=== PATIENT | female | born 1930 | race Caucasian/White ===

== ENCOUNTER 2017-07-09 02:08 | Observation (INO) | payer MEDICARE, BC ==
--- NOTE | 2017-07-09 02:46 | ED ---
General Adult HPI - General Chief complaint: Recheck/Abnormal Lab/Rx Stated complaint: Dizziness Time Seen by Provider: 07/09/17 02:24 Source: patient, family, RN notes reviewed Mode of arrival: ambulatory Limitations: no limitations - History of Present Illness Initial comments: Patient is a pleasant 86-year-old female presenting to the emergency Department as a transfer from [facility]. Patient was seen there diagnosed with vertigo. Dr. Mock did call and stated patient requested transfer. He did want patient to have neurology evaluation. He is aware that MRI is not available at this time and is questionable for availability tomorrow. Patient states she feels much better at this time. Patient states onset of symptoms was this afternoon. Patient felt lightheaded. Patient also did not feel like her eyes were working well together. No confusion or weakness. - Related Data Home Medications Medication Instructions Recorded Confirmed Cholecalciferol [Vitamin D3] 1,000 unit PO DAILY 08/19/16 07/09/17 Thyroid,Pork [[place] Thyroid] 60 mg PO DAILY 08/19/16 07/09/17 Allergies Allergy/AdvReac Type Severity Reaction Status Date / Time cetirizine [From Zyrtec] Allergy Rash/Hives Verified 07/09/17 02:13 erythromycin base Allergy Rash/Hives Verified 07/09/17 02:13 Penicillins Allergy Swelling Verified 07/09/17 02:13 Sulfa (Sulfonamide Allergy Rash/Hives Verified 07/09/17 02:13 Antibiotics) Review of Systems ROS Statement: Those systems with pertinent positive or pertinent negative responses have been documented in the HPI. ROS Other: All systems not noted in ROS Statement are negative. Constitutional: Denies: fever Eyes: Reports: as per HPI ENT: Denies: ear pain Respiratory: Denies: cough Cardiovascular: Denies: chest pain Endocrine: Denies: fatigue Gastrointestinal: Denies: abdominal pain Genitourinary: Denies: dysuria Musculoskeletal: Denies: back pain Skin: Denies: rash Neurological: Reports: vertigo. Denies: headache, weakness, confusion Past Medical History Past Medical History: Cancer, Thyroid Disorder Additional Past Medical History / Comment(s): Lichen Sclerosus et Atrophicus History of Any Multi-Drug Resistant Organisms: None Reported Past Surgical History: Appendectomy Additional Past Surgical History / Comment(s): colon resection, breast biopsy Past Psychological History: No Psychological Hx Reported Smoking Status: Never smoker Past Alcohol Use History: None Reported Past Drug Use History: None Reported General Exam Limitations: no limitations General appearance: alert, in no apparent distress Head exam: Present: atraumatic Eye exam: Present: normal appearance, PERRL, EOMI. Absent: nystagmus ENT exam: Present: normal oropharynx Neck exam: Present: normal inspection Respiratory exam: Present: normal lung sounds bilaterally Cardiovascular Exam: Present: regular rate, normal rhythm GI/Abdominal exam: Present: soft. Absent: tenderness Extremities exam: Present: normal inspection. Absent: pedal edema, calf tenderness Neurological exam: Present: alert, oriented X3, CN II-XII intact. Absent: motor sensory deficit Expanded Patient oriented to: Present: person, place, time Speech: Present: fluid speech Cranial nerves: EOM's Intact: Normal, Facial Sensation: Normal Cerebellar function: Finger to Nose: Normal Sensory exam: Upper Extremity Light Touch: Normal, Lower Extremity Light Touch: Normal Motor strength exam: RUE: 5, LUE: 5, RLE: 5, LLE: 5 Eye Response: (4) open spontaneously Motor Response: (6) obeys commands Verbal Response: (5) oriented Psychiatric exam: Present: normal affect, normal mood Skin exam: Present: normal color Course Vital Signs 07/09/17 02:11 Temperature 97.7 F Pulse Rate 114 H Respiratory 20 Rate Blood Pressure 190/90 O2 Sat by Pulse 97 Oximetry - Reevaluation(s) Reevaluation #1: 07/09/17 02:45 I did review transfer records including EKG as well as head CT and chest x-ray reports. Medical Decision Making - Medical Decision Making Rob was discussed in detail with Dr. Bowden, covering for Dr. Cristobal, who will admit for Dr. Soto. Disposition Clinical Impression: Dizziness Disposition: ADMITTED IP TO THIS [facility] Referrals: Koki Faulkner MD [Primary Care Provider] - 1-2 days Decision Time: 02:45
[2017-07-09 04:05] VITALS: BMI 23.1
[2017-07-09 07:20] LABS: ALT 32 U/L (9-52); AST 24 U/L (14-36); Alkaline Phosphatase 69 U/L (38-126); Anion Gap 8 mmol/L; Blood Urea Nitrogen 16 mg/dL (7-17); Carbon Dioxide 22 mmol/L (22-30); Chloride 105 mmol/L (98-107); Glucose 94 mg/dL (74-99); Non-African American GFR(MDRD) >60 (>60 ml/min/1.73 sqM); Sodium 135 mmol/L (137-145); Total Bilirubin 1.2 mg/dL (0.2-1.3); Total Protein 7.8 g/dL (6.3-8.2)
--- NOTE | 2017-07-09 08:35 | US ---
EXAMINATION TYPE: US carotid duplex BILAT DATE OF EXAM: 07/09/2017 COMPARISON: NONE CLINICAL HISTORY: Stenosis. EXAM MEASUREMENTS: RIGHT: Peak Systolic Velocity (PSV) cm/sec ----- Right CCA: 80.6 ----- Right ICA: 87.4 ----- Right ECA: 121.9 ICA/CCA ratio: 1.1 RIGHT: End Diastole cm/sec ----- Right CCA: 14.7 ----- Right ICA: 24.8 ----- Right ECA: 6.8 LEFT: Peak Systolic Velocity (PSV) cm/sec ----- Left CCA: 66.8 ----- Left ICA: 93.3 ----- Left ECA: 144.8 ICA/CCA ratio: 1.4 LEFT: End Diastole cm/sec ----- Left CCA: 11.3 ----- Left ICA: 9.5 ----- Left ECA: 0.0 VERTEBRALS (direction of flow): Right Vertebral: Antegrade Left Vertebral: Antegrade Rhythm: Normal No significant velocity elevations. IMPRESSION: 1. I DO NOT SEE EVIDENCE OF A HEMODYNAMICALLY SIGNIFICANT STENOSIS IN EITHER INTERNAL OR COMMON CAROT ID ARTERY. 2. ELEVATED FLOW VELOCITY, LEFT ECA. Criteria for Assigning % of Stenosis / Diameter reduction (Estimation based on the indirect measurements of the internal carotid artery velocities (ICA PSV). 1. Normal (no stenosis)=ICA PSV < 125 cm/s: ratio < 2.0: ICA EDV<40 cm/s. 2. Less than 50% stenosis=ICA PSV < 125 cm/s: ratio < 2.0: ICA EDV<40 cm/s. 3. 50 to 69% stenosis=ICA PSV of 125 to 230 cm/s: ration 2.0 ? 4.0: ICA EDV 40-100 cm/s. 4. Greater than 70% stenosis to near occlusion= ICA PSV > 230 cm/s: ratio > 4.0: ICA EDV > 100 cm/s. 5. Near occlusion= ICA PSV velocities may be low or undetectable: variable ratio and ICA EDV. 6. Total occlusion=unable to detect flow.
[2017-07-09] MEDS ORDERED: HYDROCHLOROTHIAZIDE 12.5 MG CAP PO PRN (10:32)
--- NOTE | 2017-07-09 10:36 | P.HPIM ---
History of Present Illness Chief Complaint: Dizziness This is a 86-year-old female who presented to the emergency room with worsening dizziness. Patient said that her symptoms started several weeks ago that was only occasional initially. Since then her symptoms is getting more frequent. She described having spells of dizziness and losing her balance. She said that she fell forward once last month and landed on her face. She was evaluated at an outside emergency room and was transferred here for further evaluation. Patient denies any headache, vision changes, shortness of breath, palpitation, or heart pounding. No chest pain or fever. She is complaining of a lot of sinus congestion and drainage that she describes as yellowish in color. There is no cough. Review of Systems Review of system: 14 points review of systems were obtained and were negative except to what were mentioned in the HPI. All systems: negative Constitutional: Denies chills, Denies fever Eyes: denies blurred vision, denies pain Ears, nose, mouth and throat: Denies headache, Denies sore throat Cardiovascular: Denies chest pain, Denies shortness of breath Respiratory: Denies cough Gastrointestinal: Denies abdominal pain, Denies diarrhea, Denies nausea, Denies vomiting Genitourinary: Denies dysuria, Denies hematuria Musculoskeletal: Denies myalgias Integumentary: Denies pruritus, Denies rash Neurological: Denies numbness, Denies weakness Psychiatric: Denies anxiety, Denies depression Endocrine: Denies fatigue, Denies weight change Past Medical History Past Medical History: Cancer, Hypertension, Osteoarthritis (OA), Thyroid Disorder Additional Past Medical History / Comment(s): Lichen Sclerosus et Atrophicus, multiple myoloma History of Any Multi-Drug Resistant Organisms: None Reported Past Surgical History: Appendectomy Additional Past Surgical History / Comment(s): colon resection, breast biopsy, cataract implants bilat. arteryitis left yazidi with Bx, Past Anesthesia/Blood Transfusion Reactions: No Reported Reaction Past Psychological History: No Psychological Hx Reported Smoking Status: Never smoker Past Alcohol Use History: None Reported Past Drug Use History: None Reported - Past Family History Father Family Medical History: Coronary Artery Disease (CAD) Mother Family Medical History: Coronary Artery Disease (CAD), Diabetes Mellitus Brother(s) Family Medical History: Cancer, Liver Disease Additional Family Medical History / Comment(s): Another brother-CAD/Pacer-AICD. Another brother-CVA/CAD. Another brother multiple myoloma/CAD. Another brother CA-esophagus. Another brother CA prostate Sister(s) Family Medical History: CVA/TIA, Dementia Medications and Allergies Home Medications Medication Instructions Recorded Confirmed Type Cholecalciferol [Vitamin D3] 1,000 unit PO DAILY 08/19/16 07/09/17 History Thyroid,Pork [[place] Thyroid] 60 mg PO DAILY 08/19/16 07/09/17 History Hydrochlorothiazide [Hydrodiuril] 12.5 mg PO DAILY PRN 07/09/17 07/09/17 History Allergies Allergy/AdvReac Type Severity Reaction Status Date / Time [facility] Allergy Rash/Hives Verified 07/09/17 03:48 erythromycin base Allergy Rash/Hives Verified 07/09/17 03:48 Penicillins Allergy Swelling Verified 07/09/17 03:48 Sulfa (Sulfonamide Allergy Rash/Hives Verified 07/09/17 03:48 Antibiotics) Physical Exam Vitals: Vital Signs Temp Pulse Pulse Pulse Pulse Pulse Resp 07/09/17 10:05 91 96 96 07/09/17 07:33 98.3 F 83 16 07/09/17 04:00 90 16 07/09/17 03:56 98 F 109 H 18 07/09/17 03:23 96 19 07/09/17 02:11 97.7 F 114 H 20 BP BP BP BP BP Pulse Ox 07/09/17 10:05 153/71 152/73 153/75 07/09/17 07:33 149/79 96 07/09/17 04:00 07/09/17 03:56 191/82 99 07/09/17 03:23 172/83 98 07/09/17 02:11 190/90 97 Intake and Output 07/08/17 07/09/17 07/09/17 22:59 06:59 14:59 Intake Total 150 Balance 150 Intake: Oral 150 Other: Voiding Method Toilet Toilet # Voids 1 Weight 55.6 kg General: The patient is awake and alert, in no distress Eye: there is normal conjunctiva bilaterally. Neck: The neck is supple, there is no JVD. Cardiovascular: Normal S1-S2, no S3-S4, no murmurs. Respiratory: Lungs clear to auscultation bilaterally Gastrointestinal: Abdomen is soft, nontender Musculoskeletal: There is no pedal edema. Neurological:. Speech is normal. Skin: Skin is warm and dry Results CBC & Chem 7: 07/09/17 06:23 Labs: Abnormal Lab Results - Last 24 Hours (Table) 07/09/17 Range/Units 06:23 Sodium 135 L (137-145) mmol/L Thrombosis Risk Factor Assmnt - Choose All That Apply Each Risk Factor Represents 3 Points: Age 75 years or older Thrombosis Risk Factor Assessment Total Risk Factor Score: 3 Thrombosis Risk Factor Assessment Level: Moderate Risk Assessment and Plan Assessment: 1. Worsening dizziness: Exact etiology unclear. May be attributed to underlying acute sinusitis. I will start patient on Levaquin given multiple ALLERGIES. Orthostatic blood pressure checked and negative. We'll obtain computed tomography scan of the brain and sinuses for further evaluation. Neurology consulted. Echocardiogram ordered. Doppler of the carotid showed no hemodynamically significant stenosis. Telemetry monitoring showing sinus rhythm. 2. Essential hypertension, blood pressure well-controlled 3. Vitamin D deficiency
--- NOTE | 2017-07-09 11:23 | CT ---
EXAMINATION TYPE: CT sinus wo con DATE OF EXAM: 07/09/2017 COMPARISON: NONE HISTORY: sinusitis, dizziness CT DLP: 445.3 mGycm. Automated Exposure Control for Dose Reduction was Utilized. TECHNIQUE: CT scan of the sinuses is performed without contrast, axial images are obtained, coronal r eformatted images are also reviewed. FINDINGS: Soft tissues are unremarkable. There is mild mucoperiosteal disease involving the inferior aspect of the left maxillary sinus. The p aranasal sinuses are otherwise clear. The mastoid air cells are clear. The left infundibulum is clear . The right is not clearly defined. IMPRESSION: 1. MILD, CHRONIC MUCOPERIOSTEAL THICKENING INVOLVING THE LEFT MAXILLARY SINUS. 2. I WAS UNABLE TO CLEARLY IDENTIFY THE INFUNDIBULUM ON THE RIGHT.
--- NOTE | 2017-07-09 11:28 | CT ---
EXAMINATION TYPE: CT brain wo con DATE OF EXAM: 07/09/2017 COMPARISON: Outside study dated 07/01/1717 HISTORY: sinusitis, dizziness CT DLP: 988.4 mGycm Automated exposure control for dose reduction was used. FINDINGS: There are mild atrophic changes. There is diffuse periventricular white matter lucency compatible wit h small vessel ischemic change. There is no acute focal lesion, mass effect or midline shift identifi ed. I do not see evidence of intracranial blood. Visualized portions of the paranasal sinuses and mastoids are clear. IMPRESSION: 1. NO ACUTE INTRACRANIAL ABNORMALITY. 2. MILD DEGENERATIVE CHANGE.
[2017-07-09] MEDS: LEVOFLOXACIN 500 MG TAB PO SCH (12:04)
--- NOTE | 2017-07-09 13:49 | P.CONS ---
History of Present Illness - Reason for Consult Consult date: 07/09/17 Dizziness - Chief Complaint Dizziness and vertigo - History of Present Illness Is an 86-year-old female being evaluated by the neurology service for dizziness. She reports her symptoms starting several weeks ago and they happen occasionally. She feels off balance at times and has had one fall about a month ago. She was brought in to the [facility] emergency room for a slightly prolonged episode where she felt off balance but was still functioning. She also reported some blurry vision on and off during this episode. At the time of my exam she is sitting up at side of her bed eating lunch. She denies any current neurological complaints. She does say that she got a flu shot recently and had been experiencing some mild flulike symptoms. A carotid Doppler was done and showed no hemodynamically significant stenosis. A CT of the head was done and showed no acute intracranial abnormalities. There was some small vessel ischemic change. CT of the sinuses showed chronic left maxillary sinusitis. She has been started on antibiotics. She says she has a history of multiple myeloma, for which she is not undergoing any treatment and has been stable for years. She said she treats with Dr. Jacome. Review of Systems All systems: negative Constitutional: Reports as per HPI Past Medical History Past Medical History: Cancer, Hypertension, Osteoarthritis (OA), Thyroid Disorder Additional Past Medical History / Comment(s): Lichen Sclerosus et Atrophicus, multiple myoloma History of Any Multi-Drug Resistant Organisms: None Reported Past Surgical History: Appendectomy Additional Past Surgical History / Comment(s): colon resection, breast biopsy, cataract implants bilat. arteryitis left pentecostal with Bx, Past Anesthesia/Blood Transfusion Reactions: No Reported Reaction Past Psychological History: No Psychological Hx Reported Smoking Status: Never smoker Past Alcohol Use History: None Reported Past Drug Use History: None Reported - Past Family History Father Family Medical History: Coronary Artery Disease (CAD) Mother Family Medical History: Coronary Artery Disease (CAD), Diabetes Mellitus Brother(s) Family Medical History: Cancer, Liver Disease Additional Family Medical History / Comment(s): Another brother-CAD/Pacer-AICD. Another brother-CVA/CAD. Another brother multiple myoloma/CAD. Another brother CA-esophagus. Another brother CA prostate Sister(s) Family Medical History: CVA/TIA, Dementia Medications and Allergies Home Medications Medication Instructions Recorded Confirmed Type Cholecalciferol [Vitamin D3] 1,000 unit PO W/SUPPER 08/19/16 07/09/17 History Thyroid,Pork [[place] Thyroid] 60 mg PO MOTUWETHFRSA 08/19/16 07/09/17 History Hydrochlorothiazide [Hydrodiuril] 12.5 mg PO DAILY PRN 07/09/17 07/09/17 History Allergies Allergy/AdvReac Type Severity Reaction Status Date / Time cetirizine [From Rust] Allergy Rash/Hives Verified 07/09/17 11:44 erythromycin base Allergy Rash/Hives Verified 07/09/17 11:44 Penicillins Allergy Swelling Verified 07/09/17 11:44 Sulfa (Sulfonamide Allergy Rash/Hives Verified 07/09/17 11:44 Antibiotics) Physical Exam Vitals: Vital Signs Temp Pulse Pulse Pulse Pulse Pulse Resp 07/09/17 11:42 97.5 F L 86 16 07/09/17 10:05 91 96 96 07/09/17 07:33 98.3 F 83 16 07/09/17 04:00 90 16 07/09/17 03:56 98 F 109 H 18 07/09/17 03:23 96 19 07/09/17 02:11 97.7 F 114 H 20 BP BP BP BP BP Pulse Ox 07/09/17 11:42 149/77 96 07/09/17 10:05 153/71 152/73 153/75 07/09/17 07:33 149/79 96 07/09/17 04:00 07/09/17 03:56 191/82 99 07/09/17 03:23 172/83 98 07/09/17 02:11 190/90 97 Intake and Output 07/08/17 07/09/17 07/09/17 22:59 06:59 14:59 Intake Total 150 Balance 150 Intake: Oral 150 Other: Voiding Method Toilet Toilet # Voids 1 Weight 55.6 kg - Constitutional General appearance: cooperative, no acute distress, thin - EENT Eyes: no abnormal pupil, EOMI, PERRLA, no ptosis ENT: hearing grossly normal Ears: bilateral: normal - Neck Neck: normal ROM, no rigidity - Respiratory Respiratory: negative: prolonged expiration, prolonged inspiration - Cardiovascular Rhythm: regular - Gastrointestinal General gastrointestinal: no distended, no tenderness - Neurologic Patient is alert awake and oriented 3. Speech and language are normal. There is no facial asymmetry. There is no pronator drift. Romberg is negative. Strength is 5 minus in bilateral upper and lower extremities. There is no sensory deficit noted. Radial nerves II through XII are intact globally. There is no nystagmus. No visual field deficits. Results CBC & Chem 7: 07/09/17 06:23 Labs: Abnormal Lab Results - Last 24 Hours (Table) 07/09/17 Range/Units 06:23 Sodium 135 L (137-145) mmol/L Assessment and Plan (1) Vertigo Current Visit: Yes Status: Acute Code(s): R42 - DIZZINESS AND GIDDINESS SNOMED Code(s): 610768410 (2) Hypertension Current Visit: Yes Status: Chronic Code(s): I10 - ESSENTIAL (PRIMARY) HYPERTENSION SNOMED Code(s): 66147461 (3) Chronic sinusitis Current Visit: Yes Status: Suspected Code(s): J32.9 - CHRONIC SINUSITIS, UNSPECIFIED SNOMED Code(s): 17607523 (4) Dizziness Current Visit: Yes Status: Suspected Code(s): R42 - DIZZINESS AND GIDDINESS SNOMED Code(s): 757854033 Plan: This pleasant 86-year-old female with no significant risk factors for cerebrovascular disease besides hypertension seems to be having episodes of dizziness and vertigo. This may have been exacerbated by a recent viral type illness or chronic sinusitis for which she is being treated right now. Again her CT of the brain showed no significant intracranial abnormalities. Recommend further testing in outpatient setting to detect central versus peripheral etiology for her imbalance. Otherwise continue the rest of your workup. No further neurological testing is recommended at this point. I have performed a history and physical on the above patient. I have reviewed the above note, and agree.
[2017-07-10 00:37] LABS: Cholesterol 141 mg/dL (<200); HDL Cholesterol 69 mg/dL (40-60)
[2017-07-10] MEDS ORDERED: THYROID, PORK 30 MG TAB PO SCH (06:30)
--- NOTE | 2017-07-10 08:52 | ECHOF ---
Referral Reason:Thrombus MEASUREMENTS -------- HEIGHT: 157.5 cm WEIGHT: 57.2 kg BP: 191/82 RVIDd: 2.6 cm (< 3.3) IVSd: 0.8 cm (0.6 - 1.1) LVIDd: 3.3 cm (3.9 - 5.3) LVPWd: 0.9 cm (0.6 - 1.1) IVSs: 1.2 cm LVIDs: 1.9 cm LVPWs: 1.6 cm LA Diam: 2.7 cm (2.7 - 3.8) LAESV Index (A-L): 19.76 ml/m Ao Diam: 2.9 cm (2.0 - 3.7) AV Cusp: 1.8 cm (1.5 - 2.6) MV EXCURSION: 10.933 mm (> 18.000) MV EF SLOPE: 18 mm/s (70 - 150) EPSS: 0.8 cm MV E Kana: 1.15 m/s MV DecT: 247 ms MV A Kana: 1.67 m/s MV E/A Ratio: 0.69 RAP: 5.00 mmHg RVSP: 34.51 mmHg FINDINGS -------- Sinus rhythm. This was a technically good study. The left ventricular size is normal. Left ventricular wall thickness is normal. Overall left vent ricular systolic function is normal with, an EF between 60 - 65 %. The right ventricle is normal in size. Normal LA size by volume 22+/-6 ml/m2. The right atrium is normal in size. There is mild aortic valve sclerosis. The mitral valve leaflets are mildly thickened. Mild mitral annular calcification present. There is trace mitral regurgitation. Mild tricuspid regurgitation present. There is mild pulmonary hypertension. The right ventricular systolic pressure, as measured by Doppler, is 34.51mmHg. Trace/mild (physiologic) pulmonic regurgitation. The aortic root size is normal. Normal inferior vena cava with normal inspiratory collapse consistent with estimated right atrial pre ssure of 5 mmHg. There is no pericardial effusion. CONCLUSIONS -------- 1. Sinus rhythm. 2. This was a technically good study. 3. The left ventricular size is normal. 4. Left ventricular wall thickness is normal. 5. Overall left ventricular systolic function is normal with, an EF between 60 - 65 %. 6. The right ventricle is normal in size. 7. Normal LA size by volume 22+/-6 ml/m2. 8. The right atrium is normal in size. 9. There is mild aortic valve sclerosis. 10. The mitral valve leaflets are mildly thickened. 11. Mild mitral annular calcification present. 12. There is trace mitral regurgitation. 13. Mild tricuspid regurgitation present. 14. There is mild pulmonary hypertension. 15. The right ventricular systolic pressure, as measured by Doppler, is 34.51mmHg. 16. Trace/mild (physiologic) pulmonic regurgitation. 17. The aortic root size is normal. 18. Normal inferior vena cava with normal inspiratory collapse consistent with estimated right atrial pressure of 5 mmHg. 19. There is no pericardial effusion. REQUIREMENTS ANALYST: Denise Corral RDCS
[2017-07-10] MEDS ORDERED: CHOLECALCIFEROL 1,000 UNIT TAB PO SCH (09:00)
[2017-07-10] MEDS: LEVOFLOXACIN 500 MG TAB PO SCH (10:36)
[2017-07-10 12:02] VITALS: BP 122/62; PULSE 63; RESP 14; TEMP 97.8
[2017-07-10 12:33] LABS: Basophils % (A) 0 %; CH 31.3; CHCM 33.2; Eosinophils # (A) 0.1 k/uL (0-0.7); Eosinophils % (A) 1 %; HCT 36.1 % (34.0-46.0); HDW 2.33; HGB 12.1 gm/dL (11.4-16.0); Luc % (Auto) 2; Lymphocytes # (A) 1.4 k/uL (1.0-4.8); Lymphocytes % (A) 26 %; MCH 31.8 pg (25.0-35.0); MCHC 33.6 g/dL (31.0-37.0); MCV 94.7 fL (80.0-100.0); Mean Platelet Volume 7.3; Monocytes # (A) 0.5 k/uL (0-1.0); Monocytes % (A) 9 %; Neutrophils # (A) 3.2 k/uL (1.3-7.7); Neutrophils % (A) 61 %; RBC 3.81 m/uL (3.80-5.40); RDW 13.3 % (11.5-15.5); WBC 5.2 k/uL (3.8-10.6); WBC (Perox) 5.26
[2017-07-10 12:43] LABS: ALT 31 U/L (9-52); AST 24 U/L (14-36); Alkaline Phosphatase 56 U/L (38-126); Anion Gap 10 mmol/L; Blood Urea Nitrogen 16 mg/dL (7-17); Calcium 9.8 mg/dL (8.4-10.2); Carbon Dioxide 24 mmol/L (22-30); Chloride 98 mmol/L (98-107); Glucose 91 mg/dL (74-99); Non-African American GFR(MDRD) >60 (>60 ml/min/1.73 sqM); Potassium 3.9 mmol/L (3.5-5.1); Sodium 132 mmol/L (137-145); Total Bilirubin 1.3 mg/dL (0.2-1.3); Total Protein 7.7 g/dL (6.3-8.2)
--- NOTE | 2017-07-10 14:37 | P.DS ---
Providers Date of admission: 07/09/17 02:48 Expected date of discharge: 07/10/17 Attending physician: Cj Horton Consults: 07/09/17 02:47 Consult Physician Urgent Consulting Provider: Rufino Matos Consult Reason/Comments: dizziness, visual problems Do you want consulting provider notified?: Yes [facility] Course: This is a 86-year-old female who presented to the hospital with worsening dizziness and losing her balance. She was evaluated in the emergency room twelve-lead EKG showed no acute ischemic changes. Patient underwent computed tomography scan of the brain showing no acute intracranial findings. Orthostatic blood pressure checked and negative. Echocardiogram showed preserved ejection fraction with no significant valvular abnormalities. Carotid Doppler showed no hemodynamically significant stenosis. Telemetry monitoring showing normal sinus rhythm. Patient was seen and evaluated by neurology and plan is to follow-up in the office. She was up ambulating in the hallway with her nurse and denies any further dizziness. She will be given 7 days course of Levaquin for suspected underlying sinusitis. She will follow-up with her primary care physician as directed 1. Worsening dizziness 2. Essential hypertension, blood pressure well-controlled 3. Vitamin D deficiency Plan - Discharge Summary Discharge Rx Participant: Yes New Discharge Prescriptions: New Levofloxacin [Levaquin] 500 mg PO Q24H #5 tab Meclizine [Antivert] 25 mg PO BID PRN #60 tab PRN Reason: Vertigo Continue Thyroid,Pork [[place] Thyroid] 60 mg PO MOTUWETHFRSA Cholecalciferol [Vitamin D3] 1,000 unit PO W/SUPPER Hydrochlorothiazide [Hydrodiuril] 12.5 mg PO DAILY PRN PRN Reason: Blood Pressure - High Discharge Medication List Cholecalciferol [Vitamin D3] 1,000 unit PO W/SUPPER 08/19/16 [History] Thyroid,Pork [[place] Thyroid] 60 mg PO MOTUWETHFRSA 08/19/16 [History] Hydrochlorothiazide [Hydrodiuril] 12.5 mg PO DAILY PRN 07/09/17 [History] Levofloxacin [Levaquin] 500 mg PO Q24H #5 tab 07/10/17 [Rx] Meclizine [Antivert] 25 mg PO BID PRN #60 tab 07/10/17 [Rx] Follow up Appointment(s)/Referral(s): Koki Faulkner MD [Primary Care Provider] - 3 Days Patient Instructions/Handouts: Dizziness (GEN) Discharge Disposition: HOME SELF-CARE
== END 2017-07-10 14:49 | disposition home or self-care (01) ==
LOC: EC 02:08 → 3OBS 02:48
PROVIDERS: ADMIT Internal Medicine; ATTEND Internal Medicine
DX: R42 Dizziness and giddiness (principal); R26.89 Other abnormalities of gait and mobility; E07.9 Disorder of thyroid, unspecified; I10 Essential (primary) hypertension; M19.90 Unspecified osteoarthritis, unspecified site; E55.9 Vitamin D deficiency, unspecified; L90.0 Lichen sclerosus et atrophicus; Z79.899 Other long term (current) drug therapy; Z88.0 Allergy status to penicillin; Z88.1 Allergy status to other antibiotic agents; Z88.2 Allergy status to sulfonamides; Z88.8 Allergy status to other drugs, medicaments and biological substances; Z85.79 Personal history of other malignant neoplasms of lymphoid, hematopoietic and related tissues; Z82.3 Family history of stroke
CPT/HCPCS: 93306; 80061; 80053 ×2; 85025; 93880; 70450; 70486; 99285; G0378 ×2

== ENCOUNTER 2019-06-30 11:32 | Inpatient (IN) | payer MEDICARE, BC ==
[2019-06-30] MEDS ORDERED: SODIUM CHLORIDE 0.9% 1,000 ML IV STA (12:00)
[2019-06-30] MEDS ORDERED: DILTIAZEM 125 MG in SODIUM CHLORIDE 0.9% 100 ML IV SCH (12:00)
[2019-06-30] MEDS ORDERED: DILTIAZEM DRIP BOLUS FROM BAG 1 MG SOLN IV ONE (12:00)
--- NOTE | 2019-06-30 12:09 | ED ---
General Adult HPI - General Chief complaint: Chest Pain Stated complaint: chest pain, nausea Time Seen by Provider: 06/30/19 11:44 Source: patient Mode of arrival: wheelchair Limitations: no limitations - History of Present Illness Initial comments: Dictation was produced using [email or web address] dictation software. please excuse any grammatical, word or spelling errors. Chief Complaint: 88-year-old male presents with intermittent chest pain for the last 48 hours. History of Present Illness: 88-year-old female she presents with intermittent chest pressures starting this morning. Patient has been having intermittent episodes since yesterday. She was recently evaluated at [facility] 3 days ago after a fall. She at that time rolled out of bed striking her head. [facility] to perform the computed tomography scan which was found to be unremarkable. She had laceration repair to the scalp and was sent home. Patient developed significant bruising to the left proximal upper extremity. She states that she does not have any worsening symptoms since the fall. Denies any neuro deficits. Family is at bedside reports that patient is noncompliant with usual medications. She's been evaluated for blood clots in the past with negative ultrasounds of the lower extremities looking for DVT recently. Patient denies any history of atrial fibrillation. Denies any history of panic coagulation medications. Patient does have a history of multiple myeloma. Patient has any palpitations. She states that chest pain is a pressure-like sensation that occurs intermittently to the substernal area without radiation to the shoulders or jaw, no associated diaphoresis The ROS documented in this emergency department record has been reviewed and confirmed by me. Those systems with pertinent positive or negative responses have been documented in the HPI. All other systems are other negative and/or noncontributory. PHYSICAL EXAM: General Impression: Alert and oriented x3, not in acute distress HEENT: Mild bruising and laceration to the left vertex, migdalia in place, lacerations are clean dry and intact well approximated, extra-ocular movements intact, pupils equal and reactive to light bilaterally, mucous membranes moist. Cardiovascular: Irregularly irregular tachycardic Chest: Lungs clear to auscultation bilaterally, no rhonchi, no wheeze, no rales Abdomen: Bowel sounds present, abdomen soft, non-tender, non-distended, no organomegaly Musculoskeletal: Pulses present and equal in all extremities, 4+ pitting edema to bilateral lower extremities, no cervical spine tenderness, extremities ranged with no consultations Motor: no focal deficits noted Neurological: CN II-XII grossly intact, no focal motor or sensory deficits noted Skin: Significant ecchymoses encompassing the entire proximal left upper extremity from the left shoulder down to the left elbow Psych: Normal affect and mood ED course: 88-year-old feel presents with intermittent chest pain. Upon arrival shows heart rate of 107, rest of vital signs within acceptable limits. Patient was connected to the monitor found to be at a rate of 160s. EKG was obtained showing atrial fibrillation with rapid ventricular response. Patient has no history of A. fib. She is on any anticoagulation medications. Given that patient had a recent fall with significant bruising to the left upper extremity cardiology was called recommendations on starting heparin for new onset atrial fibrillation. Discussed case with Dr. Leo's PA who asked Dr. Leo. The recommendation was to hold heparin for 24 hours. Patient's medications are reviewed. Patient on an anti-coagulation medications. Mentation from [facility] was obtained. Patient was seen there 3 days ago and was found to have no acute traumatic injuries. While at bedside patient appeared to have converted to normal sinus rhythm. EKG showed ventricular rate 93, normal sinus rhythm, CA interval 182, para 60, QTc 447. Cardizem was ordered however was not administered. Patient refused aspirin. Return evaluation obtained. Leukopenia 2.9. Hemoglobin stable at 10.6. Metabolic panel is unremarkable. Cardiac enzymes are 0.017. Thyroid study is negative. Chest x-ray shows cardiomegaly. Radiology read chest x-ray with interstitial changes which was not present previously which could represent pulmonary edema or atypical pneumonia. Given the patient has been having paroxysms atrial fib or edema is favored. Patient given by mouth metoprolol. For prevention of recurrence of A. fib with RVR. Patient be admitted to Dr. Cristobal with cardiology consultation. Patient understandable agreeable to disposition. she is chest pain-free at this time. EKG interpretation: Ventricular rate 82, A. fib with RVR, care 68, QTc 459. - Related Data Home Medications Medication Instructions Recorded Confirmed Cholecalciferol [Vitamin D3 (25 1,000 unit PO W/SUPPER 08/19/16 06/30/19 Mcg = 1000 Iu)] Thyroid,Pork [[place] Thyroid] 60 mg PO MOTUWETHFRSA 08/19/16 06/30/19 Furosemide [Lasix] 20 mg PO DAILY PRN 06/30/19 06/30/19 Allergies Allergy/AdvReac Type Severity Reaction Status Date / Time cetirizine [From Zyrte] Allergy Rash/Hives Verified 06/30/19 13:07 erythromycin base Allergy Rash/Hives Verified 06/30/19 13:07 Penicillins Allergy Swelling Verified 06/30/19 13:07 Sulfa (Sulfonamide Allergy Rash/Hives Verified 06/30/19 13:07 Antibiotics) Review of Systems ROS Statement: Those systems with pertinent positive or pertinent negative responses have been documented in the HPI. ROS Other: All systems not noted in ROS Statement are negative. Past Medical History Past Medical History: Cancer, Hypertension, Osteoarthritis (OA), Thyroid Disorde r Additional Past Medical History / Comment(s): Lichen Sclerosus et Atrophicus, multiple myoloma History of Any Multi-Drug Resistant Organisms: None Reported Past Surgical History: Appendectomy Additional Past Surgical History / Comment(s): colon resection, breast biopsy, cataract implants bilat. arteryitis left rastafari with Bx, Past Anesthesia/Blood Transfusion Reactions: No Reported Reaction Past Psychological History: No Psychological Hx Reported Smoking Status: Never smoker Past Alcohol Use History: None Reported Past Drug Use History: None Reported - Past Family History Father Family Medical History: Coronary Artery Disease (CAD) Mother Family Medical History: Coronary Artery Disease (CAD), Diabetes Mellitus Brother(s) Family Medical History: Cancer, Liver Disease Additional Family Medical History / Comment(s): Another brother-CAD/Pacer-AICD. Another brother-CVA/CAD. Another brother multiple myoloma/CAD. Another brother CA-esophagus. Another brother CA prostate Sister(s) Family Medical History: CVA/TIA, Dementia General Exam Limitations: no limitations Course Vital Signs 06/30/19 06/30/19 06/30/19 11:38 11:50 12:00 Temperature 98.0 F Pulse Rate 107 H 168 H Pulse Rate [ 168 H Sanitary Aide ] Respiratory 18 Rate Blood Pressure 114/90 115/91 O2 Sat by Pulse 94 L 100 Oximetry 06/30/19 06/30/19 12:30 13:00 Temperature Pulse Rate 88 100 Pulse Rate [ Sanitary Aide ] Respiratory 18 Rate Blood Pressure 114/85 152/85 O2 Sat by Pulse 99 Oximetry Medical Decision Making - Lab Data Result diagrams: 06/30/19 11:57 06/30/19 11:57 Lab Results 06/30/19 06/30/19 06/30/19 Range/Units 11:57 11:57 11:57 WBC 2.9 L (3.8-10.6) k/uL RBC 3.35 L (3.80-5.40) m/uL Hgb 10.6 L (11.4-16.0) gm/dL Hct 31.9 L (34.0-46.0) % MCV 95.2 (80.0-100.0) fL MCH 31.7 (25.0-35.0) pg MCHC 33.3 (31.0-37.0) g/dL RDW 13.1 (11.5-15.5) % Plt Count 172 (150-450) k/uL Neutrophils % 59 % Lymphocytes % 29 % Monocytes % 8 % Eosinophils % 1 % Basophils % 0 % Neutrophils # 1.7 (1.3-7.7) k/uL Lymphocytes # 0.8 L (1.0-4.8) k/uL Monocytes # 0.2 (0-1.0) k/uL Eosinophils # 0.0 (0-0.7) k/uL Basophils # 0.0 (0-0.2) k/uL PT 10.8 (9.0-12.0) sec INR 1.0 (<1.2) APTT 24.4 (22.0-30.0) sec Sodium 139 (137-145) mmol/L Potassium 3.7 (3.5-5.1) mmol/L Chloride 106 (98-107) mmol/L Carbon Dioxide 23 (22-30) mmol/L Anion Gap 10 mmol/L BUN 16 (7-17) mg/dL Creatinine 0.81 (0.52-1.04) mg/dL Est GFR (CKD-EPI)AfAm 76 (>60 ml/min/1.73 sqM) Est GFR (CKD-EPI)NonAf 66 (>60 ml/min/1.73 sqM) Glucose 89 (74-99) mg/dL Calcium 9.8 (8.4-10.2) mg/dL Magnesium 1.7 (1.6-2.3) mg/dL Total Bilirubin 1.5 H (0.2-1.3) mg/dL AST 31 (14-36) U/L ALT 28 (9-52) U/L Alkaline Phosphatase 66 (38-126) U/L Troponin I (0.000-0.034) ng/mL Total Protein 7.5 (6.3-8.2) g/dL Albumin 3.7 (3.5-5.0) g/dL TSH 2.120 (0.465-4.680) mIU/L 06/30/19 Range/Units 11:57 WBC (3.8-10.6) k/uL RBC (3.80-5.40) m/uL Hgb (11.4-16.0) gm/dL Hct (34.0-46.0) % MCV (80.0-100.0) fL MCH (25.0-35.0) pg MCHC (31.0-37.0) g/dL RDW (11.5-15.5) % Plt Count (150-450) k/uL Neutrophils % % Lymphocytes % % Monocytes % % Eosinophils % % Basophils % % Neutrophils # (1.3-7.7) k/uL Lymphocytes # (1.0-4.8) k/uL Monocytes # (0-1.0) k/uL Eosinophils # (0-0.7) k/uL Basophils # (0-0.2) k/uL PT (9.0-12.0) sec INR (<1.2) APTT (22.0-30.0) sec Sodium (137-145) mmol/L Potassium (3.5-5.1) mmol/L Chloride (98-107) mmol/L Carbon Dioxide (22-30) mmol/L Anion Gap mmol/L BUN (7-17) mg/dL Creatinine (0.52-1.04) mg/dL Est GFR (CKD-EPI)AfAm (>60 ml/min/1.73 sqM) Est GFR (CKD-EPI)NonAf (>60 ml/min/1.73 sqM) Glucose (74-99) mg/dL Calcium (8.4-10.2) mg/dL Magnesium (1.6-2.3) mg/dL Total Bilirubin (0.2-1.3) mg/dL AST (14-36) U/L ALT (9-52) U/L Alkaline Phosphatase (38-126) U/L Troponin I 0.017 (0.000-0.034) ng/mL Total Protein (6.3-8.2) g/dL Albumin (3.5-5.0) g/dL TSH (0.465-4.680) mIU/L Disposition Clinical Impression: Atrial fibrillation with RVR, Chest pain Disposition: ADMITTED IP TO THIS HOSP Condition: Fair Referrals: Koki Faulkner MD [Primary Care Provider] - 1-2 days Decision Time: 14:26
[2019-06-30 12:13] LABS: Basophils % (A) 0 %; Eosinophils % (A) 1 %; HCT 31.9 % (34.0-46.0); HGB 10.6 gm/dL (11.4-16.0); Lymphocytes # (A) 0.8 k/uL (1.0-4.8); Lymphocytes % (A) 29 %; MCH 31.7 pg (25.0-35.0); MCHC 33.3 g/dL (31.0-37.0); MCV 95.2 fL (80.0-100.0); Mean Platelet Volume 7.3; Monocytes # (A) 0.2 k/uL (0-1.0); Monocytes % (A) 8 %; Neutrophils # (A) 1.7 k/uL (1.3-7.7); Neutrophils % (A) 59 %; Platelet Count 172 k/uL (150-450); RBC 3.35 m/uL (3.80-5.40); RDW 13.1 % (11.5-15.5); WBC 2.9 k/uL (3.8-10.6)
[2019-06-30 12:25] LABS: Albumin 3.7 g/dL (3.5-5.0); Calcium 9.8 mg/dL (8.4-10.2); Magnesium 1.7 mg/dL (1.6-2.3); Potassium 3.7 mmol/L (3.5-5.1); Total Bilirubin 1.5 mg/dL (0.2-1.3); Total Protein 7.5 g/dL (6.3-8.2)
[2019-06-30 12:49] LABS: Partial Thromboplastin Time 24.4 sec (22.0-30.0); Prothrombin Time 10.8 sec (9.0-12.0)
[2019-06-30] MEDS ORDERED: ASPIRIN 81 MG PO STA (13:07)
--- NOTE | 2019-06-30 13:46 | XR ---
EXAMINATION TYPE: XR chest 1V DATE OF EXAM: 06/30/2019 HISTORY: dysrhythmia. REFERENCE: Previous study dated 08/19/2016. FINDINGS: The study is rotated. The heart is enlarged. There are increased interstitial markings throughout the chest. Pleural spaces appear clear. IMPRESSION: 1. CARDIOMEGALY. 2. INTERSTITIAL CHANGE WHICH WAS NOT PRESENT PREVIOUSLY. THIS MAY BE DUE TO PULMONARY EDEMA OR ATYPIC AL PNEUMONIA.
[2019-06-30] MEDS ORDERED: METOPROLOL SUCCINATE (ER) 50 MG TAB.ER.24H PO STA (14:25)
--- NOTE | 2019-06-30 16:13 | P.HPIM ---
History of Present Illness H&P Date: 06/30/19 Fabiola Perkins is an 88-year-old female patient of Dr. Soto who presented to [facility] emergency room due to episodes of chest pressure and nausea. Patient stated that she fell out of bed on Tuesday she was taken by her neighbors to [facility] emergency room she had migdalia applied to her scalp computed tomography scan of the brain did not reveal any intracran ial bleeding. Patient was discharged home, patient was not feeling well and she decided to come to emergency room. She was evaluated in the ER and had evidence of atrial fibrillation with rapid ventricular response she was started on IV Cardizem and cardiology consultation was requested, she was admitted to telemetry floor. Patient has an extensive past medical history including history of multiple myeloma, history of colorectal cancer with resection, history of hypertension and history of hypothyroidism. She denies any previous history of cardiac disease or atrial fibrillation in the past. Patient has large hematoma on the left upper extremity since falling out of bed on Tuesday, cardiology recommended holding off anticoagulation at this time. Past Medical History Past Medical History: Cancer, Hypertension, Osteoarthritis (OA), Thyroid Disord er Additional Past Medical History / Comment(s): Lichen Sclerosus et Atrophicus, multiple myoloma History of Any Multi-Drug Resistant Organisms: None Reported Past Surgical History: Appendectomy Additional Past Surgical History / Comment(s): colon resection, breast biopsy, cataract implants bilat. arteryitis left confucianist with Bx, Past Anesthesia/Blood Transfusion Reactions: No Reported Reaction Past Psychological History: No Psychological Hx Reported Smoking Status: Never smoker Past Alcohol Use History: None Reported Past Drug Use History: None Reported - Past Family History Father Family Medical History: Coronary Artery Disease (CAD) Mother Family Medical History: Coronary Artery Disease (CAD), Diabetes Mellitus Brother(s) Family Medical History: Cancer, Liver Disease Additional Family Medical History / Comment(s): Another brother-CAD/Pacer-AICD. Another brother-CVA/CAD. Another brother multiple myoloma/CAD. Another brother CA-esophagus. Another brother CA prostate Sister(s) Family Medical History: CVA/TIA, Dementia Medications and Allergies Home Medications Medication Instructions Recorded Confirmed Type Cholecalciferol [Vitamin D3 (25 1,000 unit PO W/SUPPER 08/19/16 06/30/19 History Mcg = 1000 Iu)] Thyroid,Pork [[place] Thyroid] 60 mg PO MOTUWETHFRSA 08/19/16 06/30/19 History Furosemide [Lasix] 20 mg PO DAILY PRN 06/30/19 06/30/19 History Allergies Allergy/AdvReac Type Severity Reaction Status Date / Time cetirizine [From Zyrtec] Allergy Rash/Hives Verified 06/30/19 13:07 erythromycin base Allergy Rash/Hives Verified 06/30/19 13:07 Penicillins Allergy Swelling Verified 06/30/19 13:07 Sulfa (Sulfonamide Allergy Rash/Hives Verified 06/30/19 13:07 Antibiotics) Physical Exam Vitals: Vital Signs Temp Pulse Pulse Resp BP Pulse Ox 06/30/19 15:30 98.2 F 74 18 163/78 97 06/30/19 15:00 99 18 148/69 06/30/19 14:30 83 167/78 97 06/30/19 13:30 95 159/93 99 06/30/19 13:00 100 18 152/85 99 06/30/19 12:30 88 114/85 06/30/19 12:00 168 H 115/91 100 06/30/19 11:50 168 H 06/30/19 11:38 98.0 F 107 H 18 114/90 94 L Intake and Output 06/30/19 06/30/19 06/30/19 06:59 14:59 22:59 Other: Weight 52.617 kg In general patient is alert and oriented 3 in no apparent distress HEENT head normocephalic and atraumatic Neck is supple no JVD no goiter no lymphadenopathy Chest exam reveals a few scattered rhonchi no wheezing Cardiac exam reveals regular heart sounds no gallops no murmurs abdomen is soft nontender no organomegaly Extremity exam reveals mild edema no cyanosis or clubbing Results CBC & Chem 7: 06/30/19 11:57 06/30/19 11:57 Labs: Abnormal Lab Results - Last 24 Hours (Table) 06/30/19 06/30/19 Range/Units 11:57 11:57 WBC 2.9 L (3.8-10.6) k/uL RBC 3.35 L (3.80-5.40) m/uL Hgb 10.6 L (11.4-16.0) gm/dL Hct 31.9 L (34.0-46.0) % Lymphocytes # 0.8 L (1.0-4.8) k/uL Total Bilirubin 1.5 H (0.2-1.3) mg/dL Assessment and Plan Plan: #1 atrial fibrillation with rapid ventricular response heart rate is improving with IV Cardizem drip #2 underlying history of hypertension #3 underlying history of hypothyroidism maintained on [place] Thyroid Will check TSH #4 underlying history of multiple myeloma #5 previous history of colorectal cancer with resection #6 anemia hemoglobin 10.6 At this time will continue with current management will admit to telemetry floor will add a consult for oncology Awaiting further input from cardiology Echocardiogram ordered Repeat labs in a.m. orders will follow in a.m.
[2019-06-30] MEDS: METOPROLOL TARTRATE 25 MG TAB PO SCH (20:21)
[2019-07-01 07:01] LABS: Cholesterol 108 mg/dL (<200); HDL Cholesterol 47 mg/dL (40-60); LDL Cholesterol,Calculated 52 mg/dL (0-99); Triglycerides 43 mg/dL (<150)
[2019-07-01] MEDS: THYROID, PORK 30 MG TAB PO SCH (08:32)
[2019-07-01] MEDS: METOPROLOL TARTRATE 25 MG TAB PO SCH ×2 (08:32→20:15)
--- NOTE | 2019-07-01 13:01 | P.PN ---
Subjective Progress Note Date: 07/01/19 Fabiola Perkins is an 88-year-old female patient of Dr. Soto who presented to [facility] emergency room due to episodes of chest pressure and nausea. Patient stated that she fell out of bed on Tuesday she was taken by her neighbors to [facility] emergency room she had migdalia applied to her scalp computed tomography scan of the brain did not reveal any intracranial bleeding. Patient was discharged home, patient was not feeling well and she decided to come to emergency room. She was evaluated in the ER and had evidence of atrial fibrillation with rapid ventricular response she was started on IV Cardizem and cardiology consultation was requested, she was admitted to telemetry floor. Patient has an extensive past medical history including history of multiple my eloma, history of colorectal cancer with resection, history of hypertension and history of hypothyroidism. She denies any previous history of cardiac disease or atrial fibrillation in the past. Patient has large hematoma on the left upper extremity since falling out of bed on Tuesday, cardiology recommended holding off anticoagulation at this time. On 07/01/2018 patient is alert and oriented 3. Patient is resting comfortably in chair. Patient's heart rate is now controlled. Oncology and cardiology services are following. Patient denies chest pain or shortness of breath. Patient denies nausea vomiting or diarrhea. Patient denies any urinary burning or frequency Objective - Vital Signs Vital signs: Vital Signs Temp 98 F 07/01/19 11:54 Pulse 65 07/01/19 11:54 Resp 18 07/01/19 11:54 BP 146/76 07/01/19 11:54 Pulse Ox 96 07/01/19 11:54 Intake & Output 06/30/19 07/01/19 07/01/19 18:59 06:59 18:59 Intake Total 120 Output Total 500 400 Balance 120 -500 -400 Weight 52.617 kg 52.9 kg Intake: Oral 120 Output: Urine 500 400 Other: Voiding Method Toilet Toilet # Voids 0 200 # Bowel Movements 1 - Exam In general patient is alert and oriented 3 in no apparent distress HEENT head normocephalic and atraumatic Neck is supple no JVD no goiter no lymphadenopathy Chest exam reveals a few scattered rhonchi no wheezing Cardiac exam reveals regular heart sounds no gallops no murmurs abdomen is soft nontender no organomegaly Extremity exam reveals mild edema no cyanosis or clubbing - Labs CBC & Chem 7: 06/30/19 11:57 06/30/19 11:57 Labs: Abnormal Lab Results - Last 24 Hours (Table) 06/30/19 07/01/19 Range/Units 18:02 06:21 Troponin I 0.762 H* 0.699 H* (0.000-0.034) ng/mL Assessment and Plan Assessment: #1 atrial fibrillation with rapid ventricular response heart rate is improving with IV Cardizem drip #2 underlying history of hypertension #3 underlying history of hypothyroidism maintained on [place] Thyroid Will check TSH #4 underlying history of multiple myeloma #5 previous history of colorectal cancer with resection #6 anemia hemoglobin 10.6 At this time will continue with current management will admit to telemetry floor will add a consult for oncology Awaiting further input from cardiology Echocardiogram ordered Repeat labs in a.m. orders will follow in a.m. PT, OT and older adult social work specialist consulted I performed an examination of the patient and discussed their management with the Nurse Practitioner. I have reviewed the Nurse Practitioner's notes and agree with the documented findings and plan of care
[2019-07-01 13:09] LABS: Appearance,Urine Clear (Clear); Bilirubin,Urine Negative (Negative); Blood,Urine Negative (Negative); Color,Urine Yellow; Glucose,Urine (UA) Negative (Negative); Ketones,Urine Trace (Negative); Leukocyte Esterase,Urine Trace (Negative); Mucus,Urine Rare /hpf; Nitrite,Urine Negative (Negative); PH, Urine 6.5 (5.0-8.0); Protein,Urine Negative (Negative); RBC,Urine 2 /hpf (0-5); Specific Gravity,Urine 1.016 (1.001-1.035); Squamous Epithelial Cell,Urine <1 /hpf (0-4); Urobilinogen,Urine <2.0 mg/dL (<2.0); WBC,Urine 3 /hpf (0-5)
[2019-07-01 13:11] VITALS: BMI 22.7
--- NOTE | 2019-07-01 15:27 | P.CRDCN ---
History of Present Illness Consult date: 07/01/19 Consult reason: atrial fibrillation History of present illness: Patient is an 88-year-old female with past medical history of multiple myeloma, colon cancer, hypertension, hypothyroid, and osteoarthritis, who presents to the hospital for new onset of chest pressure and associated nausea. She was recently evaluated in respiratory distress at hospital after she fell out of her bed and injured her scalp. She received several migdalia and was discharged home. She is also noted to have a large hematoma on her left upper extremity. EKG on arrival showed atrial fibrillation with RVR with heart rates in the 160s. Lab work showed WBC at 2.9, hemoglobin 10.6, hematocrit 31.9, platelet count 172, sodium 139, potassium 3.7, BUN 16, creatinine 0.81, AST 31, ALT 28, troponin 0.017, 0.076, 0.69, and LDL at 52. Chest x-ray shows cardiomegaly and interstitial changes that may be due to pulmonary edema and atypical pneumonia. Upon exam this morning patient is sitting comfortably up in her chair. She states she is overall feeling well, other than some mild fatigue. She denies any chest pain, chest pressure, palpitations, dizziness, lightheadedness. PAST MEDICAL HISTORY: Hypertension, hypothyroidism, multiple falls, multiple myeloma, colon cancer REVIEW OF SYSTEMS: No fever or chills. No cough or expectoration. No diaphoresis. Patient denies headache, dizziness, blurred vision, double vision. Patient denies any stomach discomfort. No nausea, vomiting. No hematochezia. No hematemesis. Denies any black stools or blood in his stools. Denies dysuria or hematuria. No muscle weakness or numbness. No chest discomfort, no shortness of breath, no palpitations, no dizziness or lightheadedness. Positive for an inc rease in fatigue. PHYSICAL EXAMINATION: This is a 88-year-old female in no apparent distress at the time of my examination. HEENT: Head is ormocephalic. Previous migdalia noted. Pupils are equal, round. Sclerae anicteric. Conjunctivae are clear. Mucous membranes of the mouth are moist. Neck is supple. There is no jugular venous distention. No carotid bruit is heard. CHEST EXAMINATION: Lungs are clear to auscultation. No chest wall tenderness is noted on palpation or with deep breathing. HEART EXAMINATION: Heart rate irregular. Likely occasional ectopy as she is sinus on the monitor. S1, S2 heard. No murmurs, gallops or rub. ABDOMEN: Soft, nontender. Bowel sounds are heard. No organomegaly noted. EXTREMITIES: 2+ peripheral pulses with no evidence of peripheral edema and no calf tenderness noted. Hematoma noted on left upper arm NEUROLOGIC EXAMINATION: Patient is awake, alert and oriented x3. LABORATORY DATA: WBC at 2.9, hemoglobin 10.6, hematocrit 31.9, platelet count 172, sodium 139, potassium 3.7, BUN 16, creatinine 0.81, AST 31, ALT 28, troponin 0.017, 0.076, 0.69, and LDL at 52, TSH 2.12 FINAL ASSESSMENT AND PLAN: #1 elevated troponins #2 atrial fibrillation with RVR #3 frequent falls, recent head injury #4 history of multiple cancers #5 anemia #6 hypertension, well controlled #7 hypothyroid, TSH normal PLAN: We will continue current medication regimen, including beta blockers. Echocardiogram pending. No plans on stress testing at this time. Continue to monitor on telemetry for recurrent atrial fibrillation. Past Medical History Past Medical History: Cancer, Hypertension, Osteoarthritis (OA), Thyroid Disorder Additional Past Medical History / Comment(s): Lichen Sclerosus et Atrophicus, multiple myoloma History of Any Multi-Drug Resistant Organisms: None Reported Past Surgical History: Appendectomy Additional Past Surgical History / Comment(s): colon resection, breast biopsy, cataract implants bilat. arteryitis left jew with Bx, Past Anesthesia/Blood Transfusion Reactions: No Reported Reaction Past Psychological History: No Psychological Hx Reported Smoking Status: Never smoker Past Alcohol Use History: None Reported Past Drug Use History: None Reported - Past Family History Father Family Medical History: Coronary Artery Disease (CAD) Mother Family Medical History: Coronary Artery Disease (CAD), Diabetes Mellitus Brother(s) Family Medical History: Cancer, Liver Disease Additional Family Medical History / Comment(s): Another brother-CAD/Pacer-AICD. Another brother-CVA/CAD. Another brother multiple myoloma/CAD. Another brother CA-esophagus. Another brother CA prostate Sister(s) Family Medical History: CVA/TIA, Dementia Medications and Allergies Home Medications Medication Instructions Recorded Confirmed Type Cholecalciferol [Vitamin D3 (25 1,000 unit PO W/SUPPER 08/19/16 06/30/19 History Mcg = 1000 Iu)] Thyroid,Pork [Mabel Thyroid] 60 mg PO MOTUWETHFRSA 08/19/16 06/30/19 History Furosemide [Lasix] 20 mg PO DAILY PRN 06/30/19 06/30/19 History Allergies Allergy/AdvReac Type Severity Reaction Status Date / Time cetirizine [From [facility]] Allergy Rash/Hives Verified 06/30/19 13:07 erythromycin base Allergy Rash/Hives Verified 06/30/19 13:07 Penicillins Allergy Swelling Verified 06/30/19 13:07 Sulfa (Sulfonamide Allergy Rash/Hives Verified 06/30/19 13:07 Antibiotics) Physical Exam Vitals: Vital Signs Temp Pulse Pulse Resp BP BP Pulse Ox 07/01/19 11:54 98 F 65 18 146/76 96 07/01/19 08:00 97.6 F 65 16 153/67 97 07/01/19 04:00 99.1 F 64 16 132/63 96 07/01/19 00:00 61 17 112/57 98 06/30/19 20:00 98.3 F 77 18 134/63 98 06/30/19 16:00 97.7 F 72 18 146/71 98 06/30/19 15:30 98.2 F 74 18 163/78 97 Intake and Output 07/01/19 07/01/19 07/01/19 06:59 14:59 22:59 Intake Total 120 Output Total 200 400 Balance -200 -280 Intake: Oral 120 Output: Urine 200 400 Other: Voiding Method Toilet # Voids 200 # Bowel Movements 1 Weight 52.9 kg 52.9 kg Results 06/30/19 11:57 06/30/19 11:57 Cardiac Enzymes 06/30/19 07/01/19 Range/Units 18:02 06:21 Troponin I 0.762 H* 0.699 H* (0.000-0.034) ng/mL Lipids 07/01/19 Range/Units 06:24 Triglycerides 43 (<150) mg/dL Cholesterol 108 (<200) mg/dL HDL Cholesterol 47 (40-60) mg/dL Current Medications Generic Name Dose Route Start Last Admin Trade Name Freq PRN Reason Stop Dose Admin Famotidine 20 mg 07/02/19 09:00 Pepcid PO DAILY ISABELA Metoprolol Tartrate 25 mg 06/30/19 21:00 07/01/19 08:32 Lopressor PO 25 mg BID ISABELA Administration Thyroid 60 mg 07/01/19 09:00 07/01/19 08:32 Mabel Thyroid PO Not Given DAILY ISABELA Intake and Output 07/01/19 07/01/19 07/01/19 06:59 14:59 22:59 Intake Total 120 Output Total 200 400 Balance -200 -280 Intake: Oral 120 Output: Urine 200 400 Other: Voiding Method Toilet # Voids 200 # Bowel Movements 1 Weight 52.9 kg 52.9 kg Patient Weight 07/02/19 06:59 Weight 52.9 kg 06/30/19 11:57 06/30/19 11:57
--- NOTE | 2019-07-01 20:33 | P.CONS ---
History of Present Illness - Reason for Consult Consult date: 07/01/19 Myeloma, fall - History of Present Illness The patient is an 88-year-old white female well known to myself. She was seen initially in 2014 because of a history of anemia off and on. 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 Bone marrow in 2014 revealed monoclonal kappa restricted plasma cells, about 15% by CD138 staining. 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 The patient has had issues with falls, sustaining trauma to the left upper approximately in 02/28. She fell out of bed on 06/27/19 while turning over. She sustained trauma to the scalp in the left upper approximately. She required suturing of her scalp laceration actual [facility], and was discharged home. She'll not feeling well and therefore came in to the ER where she was found to be in atrial fibrillation with RVR. She was therefore admitted for further management On admission hemoglobin in WBC was slightly lower than her baseline, with hemoglobin in the 10-11 range, and WBC 2.9. Consult was therefore placed for further evaluation and recommendations Regarding her asymptomatic myeloma,The patient is currently on observation wi thout evidence of progression, or need for treatment Review of Systems Constitutional: Reports fatigue, Reports weakness Eyes: left decreased vision Ears: bilateral: decreased hearing, deny: ear discharge, earache, tinnitus Ears, nose, mouth and throat: Denies headache, Denies sore throat Cardiovascular: Reports as per HPI, Reports dyspnea on exertion, Reports irregular heart beat, Reports rapid heart beat Respiratory: Reports dyspnea Gastrointestinal: Denies abdominal pain, Denies diarrhea, Denies nausea, Denies vomiting Genitourinary: Reports urge incontinence, Reports urinary frequency Menstruation: Reports postmenopausal Musculoskeletal: Reports as per HPI, Reports muscle weakness Integumentary: Reports as per HPI (Significant bruising left upper extremity) Neurological: Reports weakness Psychiatric: Denies anxiety, Denies depression Endocrine: Reports fatigue Hematologic/Lymphatic: Reports as per HPI Past Medical History Past Medical History: Cancer, Hypertension, Osteoarthritis (OA), Thyroid Disorder Additional Past Medical History / Comment(s): Lichen Sclerosus et Atrophicus, multiple myoloma History of Any Multi-Drug Resistant Organisms: None Reported Past Surgical History: Appendectomy Additional Past Surgical History / Comment(s): colon resection, breast biopsy, cataract implants bilat. arteryitis left protestant with Bx, Past Anesthesia/Blood Transfusion Reactions: No Reported Reaction Past Psychological History: No Psychological Hx Reported Smoking Status: Never smoker Past Alcohol Use History: None Reported Past Drug Use History: None Reported - Past Family History Father Family Medical History: Coronary Artery Disease (CAD) Mother Family Medical History: Coronary Artery Disease (CAD), Diabetes Mellitus Brother(s) Family Medical History: Cancer, Liver Disease Additional Family Medical History / Comment(s): Another brother-CAD/Pacer-AICD. Another brother-CVA/CAD. Another brother multiple myoloma/CAD. Another brother CA-esophagus. Another brother CA prostate Sister(s) Family Medical History: CVA/TIA, Dementia Medications and Allergies Home Medications Medication Instructions Recorded Confirmed Type Cholecalciferol [Vitamin D3 (25 1,000 unit PO W/SUPPER 08/19/16 06/30/19 History Mcg = 1000 Iu)] Thyroid,Pork [Enola Thyroid] 60 mg PO MOTUWETHFRSA 08/19/16 06/30/19 History Furosemide [Lasix] 20 mg PO DAILY PRN 06/30/19 06/30/19 History Allergies Allergy/AdvReac Type Severity Reaction Status Date / Time cetirizine [From [facility]] Allergy Rash/Hives Verified 06/30/19 13:07 erythromycin base Allergy Rash/Hives Verified 06/30/19 13:07 Penicillins Allergy Swelling Verified 06/30/19 13:07 Sulfa (Sulfonamide Allergy Rash/Hives Verified 06/30/19 13:07 Antibiotics) Physical Exam Vitals: Vital Signs Temp Pulse Resp BP Pulse Ox 07/01/19 11:54 98 F 65 18 146/76 96 07/01/19 08:00 97.6 F 65 16 153/67 97 07/01/19 04:00 99.1 F 64 16 132/63 96 07/01/19 00:00 61 17 112/57 98 06/30/19 20:00 98.3 F 77 18 134/63 98 06/30/19 16:00 97.7 F 72 18 146/71 98 Intake and Output 07/01/19 07/01/19 07/01/19 06:59 14:59 22:59 Intake Total 120 Output Total 200 400 Balance -200 -280 Intake: Oral 120 Output: Urine 200 400 Other: Voiding Method Toilet # Voids 200 # Bowel Movements 1 Weight 52.9 kg 52.9 kg - Constitutional General appearance: no acute distress - EENT Eyes: EOMI, PERRLA ENT: hearing grossly normal, normal oropharynx - Neck Neck: no lymphadenopathy - Respiratory Respiratory: bilateral: diminished - Cardiovascular Rhythm: irregularly irregular Heart sounds: normal: S1, S2 - Gastrointestinal General gastrointestinal: normal bowel sounds, soft - Integumentary Extensive ecchymosis left upper extremity between shoulder and elbow - Neurologic Neurologic: CNII-XII intact - Musculoskeletal Musculoskeletal: generalized weakness, strength equal bilaterally - Psychiatric Psychiatric: A&O x's 3, appropriate affect Results CBC & Chem 7: 06/30/19 11:57 06/30/19 11:57 Labs: Abnormal Lab Results - Last 24 Hours (Table) 06/30/19 07/01/19 07/01/19 Range/Units 18:02 06:21 12:30 Troponin I 0.762 H* 0.699 H* (0.000-0.034) ng/mL Urine Ketones Trace H (Negative) Ur Leukocyte Esterase Trace H (Negative) Urine Mucus Rare H (None) /hpf Chest x-ray: report reviewed Assessment and Plan (1) Myeloma Narrative/Plan: The patient is asymptomatic disease, and is on observation without evidence of progression. She has never required any treatment. Most recent restaging labs from 06/27/90 continue to show no evidence of progression. There appears to be no relation to her current presentation. continue observation Current Visit: Yes Status: Acute Code(s): C90.00 - MULTIPLE MYELOMA NOT HAVING ACHIEVED REMISSION SNOMED Code(s): 847543048 (2) Bicytopenia Narrative/Plan: Mild change from her baseline, his most likely due to recent trauma and blood loss from significant ecchymosis. Counts are in a safe range. Continue to monitor. No intervention required acutely. Current Visit: Yes Status: Acute Code(s): D75.89 - OTHER SPECIFIED DISEASES OF BLOOD AND BLOOD-FORMING ORGANS SNOMED Code(s): 41265152 (3) Atrial fibrillation with RVR Narrative/Plan: Defer to the admitting service and cardiology for further management Current Visit: Yes Status: Acute Code(s): I48.91 - UNSPECIFIED ATRIAL FIBRILLATION SNOMED Code(s): 383393034692181
[2019-07-02 06:26] LABS: Basophils % (A) 0 %; Eosinophils % (A) 1 %; HCT 27.6 % (34.0-46.0); HGB 9.7 gm/dL (11.4-16.0); Lymphocytes # (A) 1.5 k/uL (1.0-4.8); Lymphocytes % (A) 43 %; MCH 33.4 pg (25.0-35.0); MCHC 35.2 g/dL (31.0-37.0); MCV 94.7 fL (80.0-100.0); Mean Platelet Volume 6.6; Monocytes # (A) 0.3 k/uL (0-1.0); Monocytes % (A) 9 %; Neutrophils # (A) 1.6 k/uL (1.3-7.7); Neutrophils % (A) 44 %; Platelet Count 159 k/uL (150-450); RBC 2.91 m/uL (3.80-5.40); RDW 12.9 % (11.5-15.5); WBC 3.6 k/uL (3.8-10.6)
[2019-07-02 06:40] LABS: Albumin 2.9 g/dL (3.5-5.0); Calcium 9.1 mg/dL (8.4-10.2); Total Bilirubin 0.9 mg/dL (0.2-1.3); Total Protein 6.4 g/dL (6.3-8.2)
[2019-07-02] MEDS: METOPROLOL TARTRATE 25 MG TAB PO SCH ×2 (09:45→20:42)
[2019-07-02] MEDS: FAMOTIDINE 20 MG TAB PO SCH (09:45)
[2019-07-02] MEDS: THYROID, PORK 30 MG TAB PO SCH (09:46)
--- NOTE | 2019-07-02 10:42 | P.PN ---
Subjective Progress Note Date: 07/02/19 Fabiola Perkins is an 88-year-old female patient of Dr. Soto who presented to [facility] emergency room due to episodes of chest pressure and nausea. Patient stated that she fell out of bed on Tuesday she was taken by her neighbors to [facility] emergency room she had migdalia applied to her scalp computed tomography scan of the brain did not reveal any intracranial bleeding. Patient was discharged home, patient was not feeling well and she decided to come to emergency room. She was evaluated in the ER and had evidence of atrial fibrillation with rapid ventricular response she was started on IV Cardizem and cardiology consultation was requested, she was admitted to telemetry floor. Patient has an extensive past medical history including history of multiple my eloma, history of colorectal cancer with resection, history of hypertension and history of hypothyroidism. She denies any previous history of cardiac disease or atrial fibrillation in the past. Patient has large hematoma on the left upper extremity since falling out of bed on Tuesday, cardiology recommended holding off anticoagulation at this time. On 07/01/2018 patient is alert and oriented 3. Patient is resting comfortably in chair. Patient's heart rate is now controlled. Oncology and cardiology services are following. Patient denies chest pain or shortness of breath. Patient denies nausea vomiting or diarrhea. Patient denies any urinary burning or frequency On 07/02/2019 patient is alert and oriented 3 resting comfortably in bed. Patient does have large bruise to left upper extremity. Discussed anticoagulation with cardiology and oncology services. Cardiology to assess patient qualifies. Per oncology indication patient's known multiple myeloma. Patient denies chest pain or shortness of breath. Patient denies nausea. Patient denies any urinary burning or frequency. Objective - Vital Signs Vital signs: Vital Signs Temp 98.2 F 07/02/19 08:00 Pulse 67 07/02/19 08:00 Resp 17 07/02/19 08:00 BP 145/65 07/02/19 08:00 Pulse Ox 96 07/02/19 08:00 Intake & Output 07/01/19 07/02/19 07/02/19 18:59 06:59 18:59 Intake Total 120 120 220 Output Total 400 Balance -280 120 220 Weight 52.9 kg Intake: Oral 120 120 220 Output: Urine 400 Other: Voiding Method Toilet # Voids 1 1 # Bowel Movements 1 - Exam In general patient is alert and oriented 3 in no apparent distress HEENT head normocephalic and atraumatic Neck is supple no JVD no goiter no lymphadenopathy Chest exam reveals a few scattered rhonchi no wheezing Cardiac exam reveals regular heart sounds no gallops no murmurs abdomen is soft nontender no organomegaly Extremity exam reveals mild edema no cyanosis or clubbing - Labs CBC & Chem 7: 07/02/19 06:13 07/02/19 06:13 Labs: Abnormal Lab Results - Last 24 Hours (Table) 07/01/19 07/02/19 07/02/19 Range/Units 12:30 06:13 06:13 WBC 3.6 L (3.8-10.6) k/uL RBC 2.91 L (3.80-5.40) m/uL Hgb 9.7 L (11.4-16.0) gm/dL Hct 27.6 L (34.0-46.0) % BUN 23 H (7-17) mg/dL Albumin 2.9 L (3.5-5.0) g/dL Urine Ketones Trace H (Negative) Ur Leukocyte Esterase Trace H (Negative) Urine Mucus Rare H (None) /hpf Assessment and Plan Assessment: #1 atrial fibrillation with rapid ventricular response heart rate is improving with IV Cardizem drip. Cardizem drip DC'd. Per cardiology will discuss po ssible starting of anticoagulation #2 underlying history of hypertension #3 underlying history of hypothyroidism maintained on [place] Thyroid Will check TSH #4 underlying history of multiple myeloma. no contraindication for anticoagulation #5 previous history of colorectal cancer with resection #6 Left arm hematoma. hemoglobin 9.7 #7. Trace amount of leukocyte Estrace in urinary analysis. Patient is asymptomatic. Urine culture ordered Echocardiogram ordered Repeat labs in a.m. orders will follow in a.m. PT, OT and family welfare social work professor consulted Plan for discharge to rehab I performed an examination of the patient and discussed their management with the Nurse Practitioner. I have reviewed the Nurse Practitioner's notes and agree with the documented findings and plan of care
--- NOTE | 2019-07-02 10:54 | ECHOF ---
Referral Reason:a fib MEASUREMENTS -------- HEIGHT: 152.4 cm WEIGHT: 52.6 kg BP: 130/62 RVIDd: 2.1 cm (< 3.3) IVSd: 0.9 cm (0.6 - 1.1) LVIDd: 3.7 cm (3.9 - 5.3) LVPWd: 1.0 cm (0.6 - 1.1) IVSs: 1.6 cm LVIDs: 1.1 cm LVPWs: 1.7 cm LAESV Index (A-L): 46.97 ml/m Ao Diam: 2.8 cm (2.0 - 3.7) AV Cusp: 1.7 cm (1.5 - 2.6) LA Diam: 4.5 cm (2.7 - 3.8) MV EXCURSION: 10.759 mm (> 18.000) MV EF SLOPE: 53 mm/s (70 - 150) EPSS: 0.8 cm MV E Kana: 1.61 m/s MV DecT: 396 ms MV A Kana: 1.28 m/s MV E/A Ratio: 1.26 RAP: 5.00 mmHg RVSP: 28.21 mmHg TAPSE: 29.85 mm FINDINGS -------- Sinus rhythm. This was a technically good study. The left ventricular size is normal. Left ventricular wall thickness is normal. Overall left vent ricular systolic function is normal with, an EF between 55 - 60 %. Normal LAP Grade 1 Diastolic Dys function. The right ventricle is normal in size. The right ventricular systolic function is normal. LA is severely dilated >40 ml/m2 The right atrial size is normal. The aortic valve is trileaflet and appears structurally normal. The mitral valve leaflets are moderately thickened. Moderate mitral annular calcification present. Mild mitral regurgitation is present. The peak and mean MV gradients are 11.35mmHg 3.55mmHg as m easured by doppler. Moderate mitral stenosis. The tricuspid valve appears structurally normal. Mild tricuspid regurgitation present. Right vent ricular systolic pressure is normal at < 35 mmHg. There is no pulmonic regurgitation present. The aortic root size is normal. Normal inferior vena cava with normal inspiratory collapse consistent with estimated right atrial pre ssure of 5 mmHg. There is no pericardial effusion. CONCLUSIONS -------- 1. Sinus rhythm. 2. This was a technically good study. 3. The left ventricular size is normal. 4. Left ventricular wall thickness is normal. 5. Overall left ventricular systolic function is normal with, an EF between 55 - 60 %. 6. Normal LAP Grade 1 Diastolic Dysfunction. 7. The right ventricle is normal in size. 8. The right ventricular systolic function is normal. 9. LA is severely dilated >40 ml/m2 10. The right atrial size is normal. 11. The aortic valve is trileaflet and appears structurally normal. 12. The mitral valve leaflets are moderately thickened. 13. Moderate mitral annular calcification present. 14. Mild mitral regurgitation is present. 15. The peak and mean MV gradients are 11.35mmHg 3.55mmHg as measured by doppler. 16. Moderate mitral stenosis. 17. The tricuspid valve appears structurally normal. 18. Mild tricuspid regurgitation present. 19. Right ventricular systolic pressure is normal at < 35 mmHg. 20. There is no pulmonic regurgitation present. 21. The aortic root size is normal. 22. Normal inferior vena cava with normal inspiratory collapse consistent with estimated right atrial pressure of 5 mmHg. 23. There is no pericardial effusion. MACHINE BILLER: Adri Markham RDCS
--- NOTE | 2019-07-02 12:10 | P.PN ---
Subjective Progress Note Date: 07/02/19 Patient is an 88-year-old female with past medical history of multiple myeloma, colon cancer, hypertension, hypothyroid, and osteoarthritis, who presents to the hospital for new onset of chest pressure and associated nausea. She was recently evaluated in respiratory distress at hospital after she fell out of her bed and injured her scalp. She received several migdalia and was discharged home. She is also noted to have a large hematoma on her left upper extremity. EKG on arrival showed atrial fibrillation with RVR with heart rates in the 160s. Lab work showed WBC at 2.9, hemoglobin 10.6, hematocrit 31.9, platelet count 172, sodium 139, potassium 3.7, BUN 16, creatinine 0.81, AST 31, ALT 28, tro ponin 0.017, 0.076, 0.69, and LDL at 52. Chest x-ray shows cardiomegaly and interstitial changes that may be due to pulmonary edema and atypical pneumonia. Upon examination this morning, patient is alert and oriented 3 resting comfortably in bed, she does have evidence of ecchymosis on the left upper extremity, no evidence of any hematoma. Patient has been cleared by oncology service to be initiated on anticoagulation if the patient agrees. I did have a lengthy discussion with the patient and her 2 nieces who are at the closest family members, they are at the bedside. They are didn't discuss further regarding initiating anticoagulation and let us know. Objective - Vital Signs Vital signs: Vital Signs Temp 98.1 F 07/02/19 11:29 Pulse 68 07/02/19 11:30 Resp 18 07/02/19 11:30 BP 140/71 07/02/19 11:29 Pulse Ox 97 07/02/19 11:29 Intake & Output 07/01/19 07/02/19 07/02/19 18:59 06:59 18:59 Intake Total 120 120 220 Output Total 400 Balance -280 120 220 Weight 52.9 kg Intake: Oral 120 120 220 Output: Urine 400 Other: Voiding Method Toilet # Voids 1 1 # Bowel Movements 1 - Exam PHYSICAL EXAMINATION: GENERAL: 88-year-old female in no acute distress at the time of my examination HEENT: Head is atraumatic, sutures placed, mild ecchymosis normocephalic. Pupils equal, round. Sclera anicteric. Conjunctiva are clear. Mucous membranes of the mouth are moist. Neck is supple. There is no elevated jugular venous pressure.] bruit is heard. HEART EXAMINATION: Heart S1, S2 systolic murmur heard . CHEST EXAMINATION: Lungs reveal a few coarse rhonchi throughout ABDOMEN: Soft, nontender. Bowel sounds are heard. No organomegaly noted. EXTREMITIES: 2+ peripheral pulses with no evidence of peripheral edema and no calf tenderness noted. Ecchymosis noted to the left upper lateral arm NEUROLOGIC patient is awake, alert and oriented X3. . - Labs CBC & Chem 7: 07/02/19 06:13 07/02/19 06:13 Labs: Abnormal Lab Results - Last 24 Hours (Table) 07/01/19 07/02/19 07/02/19 Range/Units 12:30 06:13 06:13 WBC 3.6 L (3.8-10.6) k/uL RBC 2.91 L (3.80-5.40) m/uL Hgb 9.7 L (11.4-16.0) gm/dL Hct 27.6 L (34.0-46.0) % BUN 23 H (7-17) mg/dL Albumin 2.9 L (3.5-5.0) g/dL Urine Ketones Trace H (Negative) Ur Leukocyte Esterase Trace H (Negative) Urine Mucus Rare H (None) /hpf Assessment and Plan Plan: Assessment and plan #1 atrial fibrillation with rapid ventricular response, paroxysmal, currently in normal sinus rhythm. Anticoagulation discussed in detail with the patient and her family #2 history of hypertension #3 history of hypothyroidism #4 history of multiple myeloma. no contraindication for anticoagulation #5 previous history of colorectal cancer with resection #6 Left arm ecchymosis #7. Trace amount of leukocyte Estrace in urinary analysis. Patient is asymptomatic. Plan from cardiology's perspective, we did discuss anticoagulation in the form of Eliquis 2-1/2 mg one tablet by mouth twice a day with the patient and the family in great detail. They wish to discuss it further and let us know whether or not they want that to be initiated. At this present time we will continue with current medications. DNP note has been reviewed, I agree with a documented findings and plan of care. Patient was seen and examined.
--- NOTE | 2019-07-02 20:41 | P.PN ---
Subjective Progress Note Date: 07/02/19 Principal diagnosis: a fib multiple myeloma no acute changes overnight, planning rehab Objective - Vital Signs Vital signs: Vital Signs Temp 98.2 F 07/02/19 08:00 Pulse 67 07/02/19 08:00 Resp 17 07/02/19 08:00 BP 145/65 07/02/19 08:00 Pulse Ox 96 07/02/19 08:00 Intake & Output 07/01/19 07/02/19 07/02/19 18:59 06:59 18:59 Intake Total 120 120 220 Output Total 400 Balance -280 120 220 Weight 52.9 kg Intake: Oral 120 120 220 Output: Urine 400 Other: Voiding Method Toilet # Voids 1 1 # Bowel Movements 1 - Exam General: Alert and Oriented x3, No Acute Distress Head: Normocytic, Atraumatic Neck: Supple Mouth: No Lesions, No Thrush Eyes: Non-sclerotic No Palpable cervical, supraclavicular, axillary adenopathy Heart: Regular Rate, Regular Rhythm Lungs: Clear to Ausculations, No Wheeze, No Rhonchi, Diminishe bilateral lower lobes, No increased respiratory effort noted Abdomen: Soft, Non-Distended, Non-Tended, BSx4 Neurological: No Focal Defects: No sensory or motor deficits noted Psych: Calm and cooperative Hematoma from recent fall - Labs CBC & Chem 7: 07/02/19 06:13 07/02/19 06:13 Labs: Abnormal Lab Results - Last 24 Hours (Table) 07/01/19 07/02/19 07/02/19 Range/Units 12:30 06:13 06:13 WBC 3.6 L (3.8-10.6) k/uL RBC 2.91 L (3.80-5.40) m/uL Hgb 9.7 L (11.4-16.0) gm/dL Hct 27.6 L (34.0-46.0) % BUN 23 H (7-17) mg/dL Albumin 2.9 L (3.5-5.0) g/dL Urine Ketones Trace H (Negative) Ur Leukocyte Esterase Trace H (Negative) Urine Mucus Rare H (None) /hpf Assessment and Plan Plan: (1) Myeloma Narrative/Plan: The patient is asymptomatic disease, and is on observation without evidence of progression. She has never required any treatment. Most recent restaging labs from 06/27/90 continue to show no evidence of progression. There appears to be no relation to her current presentation. continue observation (2) Bicytopenia Narrative/Plan: - Mild change from her baseline, his most likely due to recent trauma and blood loss from significant ecchymosis. - Counts are in a safe range. - Daily CBC Continue to monitor. No intervention required acutely. (3) Atrial fibrillation with RVR Narrative/Plan: Defer to the admitting service and cardiology for further management From oncology standpoint AC is ok, although must weigh risk of falls and recent falls. As far as CBC and treatment MM (on observation)no direct complication. Benefit and risk of AC per cardiology Discussed with Primary team
[2019-07-03] MEDS: THYROID, PORK 30 MG TAB PO SCH (06:08)
[2019-07-03 08:44] LABS: Basophils % (A) 0 %; Eosinophils # (A) 0.1 k/uL (0-0.7); Eosinophils % (A) 1 %; HCT 30.3 % (34.0-46.0); HGB 10.4 gm/dL (11.4-16.0); Lymphocytes # (A) 1.5 k/uL (1.0-4.8); Lymphocytes % (A) 34 %; MCHC 34.4 g/dL (31.0-37.0); MCV 95.8 fL (80.0-100.0); Mean Platelet Volume 6.7; Monocytes # (A) 0.3 k/uL (0-1.0); Monocytes % (A) 6 %; Neutrophils # (A) 2.6 k/uL (1.3-7.7); Neutrophils % (A) 57 %; Platelet Count 157 k/uL (150-450); RBC 3.16 m/uL (3.80-5.40); RDW 12.8 % (11.5-15.5); WBC 4.5 k/uL (3.8-10.6)
[2019-07-03] MEDS ORDERED: HEPARIN SODIUM,PORCINE 5,000 UNIT/ML 1 ML VIAL SQ SCH (09:00)
[2019-07-03 09:12] LABS: Albumin 3.2 g/dL (3.5-5.0); Calcium 9.2 mg/dL (8.4-10.2); Total Protein 6.9 g/dL (6.3-8.2)
--- NOTE | 2019-07-03 09:44 | P.PN ---
Subjective Progress Note Date: 07/03/19 Fabiola Perkins is an 88-year-old female patient of Dr. Soto who presented to [facility] emergency room due to episodes of chest pressure and nausea. Patient stated that she fell out of bed on Tuesday she was taken by her neighbors to [facility] emergency room she had migdalia applied to her scalp computed tomography scan of the brain did not reveal any intracranial bleeding. Patient was discharged home, patient was not feeling well and she decided to come to emergency room. She was evaluated in the ER and had evidence of atrial fibrillation with rapid ventricular response she was started on IV Cardizem and cardiology consultation was requested, she was admitted to telemetry floor. Patient has an extensive past medical history including history of multiple my eloma, history of colorectal cancer with resection, history of hypertension and history of hypothyroidism. She denies any previous history of cardiac disease or atrial fibrillation in the past. Patient has large hematoma on the left upper extremity since falling out of bed on Tuesday, cardiology recommended holding off anticoagulation at this time. On 07/01/2018 patient is alert and oriented 3. Patient is resting comfortably in chair. Patient's heart rate is now controlled. Oncology and cardiology services are following. Patient denies chest pain or shortness of breath. Patient denies nausea vomiting or diarrhea. Patient denies any urinary burning or frequency On 07/02/2019 patient is alert and oriented 3 resting comfortably in bed. Patient does have large bruise to left upper extremity. Discussed anticoagulation with cardiology and oncology services. Cardiology to assess patient qualifies. Per oncology dr. bhatt patient's known multiple myeloma. Patient denies chest pain or shortness of breath. Patient denies nausea. Patient denies any urinary burning or frequency. On 07/03/2019 patient is alert and oriented 3 resting comfortably in bed. Cardiology had at length conversation with patient and family in regards to possibly starting anticoagulation for A. fib. At this time patient would like to take some time to think about it and talk it over with her nieces. Patient verbalized understanding of both risk and benefit of anticoagulation. At this time patient denies chest pain or shortness of breath. Patient denies nausea vomiting or diarrhea. Patient denies any urinary burning or frequency. Bruise to left arm is improving. Hemoglobin stable at 10.4 Objective - Vital Signs Vital signs: Vital Signs Temp 98.2 F 07/03/19 05:00 Pulse 61 07/03/19 05:00 Resp 18 07/03/19 05:00 BP 158/68 07/03/19 05:00 Pulse Ox 97 07/03/19 05:00 Intake & Output 07/02/19 07/03/19 07/03/19 18:59 06:59 18:59 Intake Total 460 360 Output Total 402 Balance 58 360 Intake: Oral 460 360 Output: Urine 400 Stool 2 Other: Voiding Method Toilet Toilet # Voids 1 2 1 # Bowel Movements 0 - Exam In general patient is alert and oriented 3 in no apparent distress HEENT head normocephalic and atraumatic Neck is supple no JVD no goiter no lymphadenopathy Chest exam reveals a few scattered rhonchi no wheezing Cardiac exam reveals regular heart sounds no gallops no murmurs abdomen is soft nontender no organomegaly Extremity exam reveals mild edema no cyanosis or clubbing. Large bruise to left upper arm - Labs CBC & Chem 7: 07/03/19 08:08 07/03/19 08:08 Labs: Abnormal Lab Results - Last 24 Hours (Table) 07/03/19 07/03/19 Range/Units 08:08 08:08 RBC 3.16 L (3.80-5.40) m/uL Hgb 10.4 L (11.4-16.0) gm/dL Hct 30.3 L (34.0-46.0) % Sodium 136 L (137-145) mmol/L BUN 18 H (7-17) mg/dL Glucose 127 H (74-99) mg/dL Albumin 3.2 L (3.5-5.0) g/dL Microbiology - Last 24 Hours (Table) 07/02/19 10:00 Urine Culture - Preliminary Urine,Voided Assessment and Plan Assessment: #1 atrial fibrillation with rapid ventricular response heart rate is improving with IV Cardizem drip. Cardizem drip DC'd. At length conversation held between cardiology with patient and family in regards to starting anticoagulation. At this time patient would like to take some time to think about options in regards to anticoagulation. Patient verbalizes understanding of risks and benefits of anticoagulation for atrial fibrillation #2 underlying history of hypertension #3 underlying history of hypothyroidism maintained on [place] Thyroid. TSH level 2.120 #4 underlying history of multiple myeloma. no contraindication for anticoagulation #5 previous history of colorectal cancer with resection #6 Left arm hematoma. hemoglobin 1.4 #7. Trace amount of leukocyte Estrace in urinary analysis. Patient is asymptomatic. Urine culture ordered DVT prophylaxis heparin. GI prophylaxis Pepcid 2-D echo completed showing an EF of 55-60% Repeat labs in a.m. orders will follow in a.m. PT, OT and social media marketing manager consulted Plan for discharge to rehab I performed an examination of the patient and discussed their management with the Nurse Practitioner. I have reviewed the Nurse Practitioner's notes and agree with the documented findings and plan of care
[2019-07-03] MEDS: METOPROLOL TARTRATE 25 MG TAB PO SCH ×2 (09:46→19:40)
[2019-07-03] MEDS: FAMOTIDINE 20 MG TAB PO SCH (09:46)
[2019-07-03] MEDS: APIXABAN 2.5 MG TABLET PO SCH (14:16)
[2019-07-04] MEDS: APIXABAN 2.5 MG TABLET PO SCH ×3 (03:20→20:41)
[2019-07-04 05:31] VITALS: RESP 16
[2019-07-04 08:19] LABS: Basophils % (A) 1 %; Eosinophils # (A) 0.1 k/uL (0-0.7); Eosinophils % (A) 2 %; HCT 29.8 % (34.0-46.0); HGB 10.1 gm/dL (11.4-16.0); Lymphocytes # (A) 1.4 k/uL (1.0-4.8); Lymphocytes % (A) 36 %; MCH 32.3 pg (25.0-35.0); MCHC 33.8 g/dL (31.0-37.0); MCV 95.5 fL (80.0-100.0); Mean Platelet Volume 7.1; Monocytes # (A) 0.3 k/uL (0-1.0); Monocytes % (A) 8 %; Neutrophils # (A) 1.9 k/uL (1.3-7.7); Neutrophils % (A) 51 %; Platelet Count 163 k/uL (150-450); RBC 3.12 m/uL (3.80-5.40); RDW 12.9 % (11.5-15.5); WBC 3.8 k/uL (3.8-10.6)
[2019-07-04 08:52] LABS: Albumin 2.8 g/dL (3.5-5.0); Calcium 9.1 mg/dL (8.4-10.2); Potassium 4.2 mmol/L (3.5-5.1); Total Bilirubin 0.8 mg/dL (0.2-1.3); Total Protein 6.4 g/dL (6.3-8.2)
[2019-07-04] MEDS: THYROID, PORK 30 MG TAB PO SCH (09:29)
[2019-07-04] MEDS: METOPROLOL TARTRATE 25 MG TAB PO SCH ×3 (09:29→20:41)
[2019-07-04] MEDS: FAMOTIDINE 20 MG TAB PO SCH (09:29)
--- NOTE | 2019-07-04 09:59 | P.PN ---
Subjective Progress Note Date: 07/04/19 Fabiola Perkins is an 88-year-old female patient of Dr. Soto who presented to [facility] emergency room due to episodes of chest pressure and nausea. Patient stated that she fell out of bed on Tuesday she was taken by her neighbors to [facility] emergency room she had migdalia applied to her scalp computed tomography scan of the brain did not reveal any intracranial bleeding. Patient was discharged home, patient was not feeling well and she decided to come to emergency room. She was evaluated in the ER and had evidence of atrial fibrillation with rapid ventricular response she was started on IV Cardizem and cardiology consultation was requested, she was admitted to telemetry floor. Patient has an extensive past medical history including history of multiple my eloma, history of colorectal cancer with resection, history of hypertension and history of hypothyroidism. She denies any previous history of cardiac disease or atrial fibrillation in the past. Patient has large hematoma on the left upper extremity since falling out of bed on Tuesday, cardiology recommended holding off anticoagulation at this time. On 07/01/2018 patient is alert and oriented 3. Patient is resting comfortably in chair. Patient's heart rate is now controlled. Oncology and cardiology services are following. Patient denies chest pain or shortness of breath. Patient denies nausea vomiting or diarrhea. Patient denies any urinary burning or frequency On 07/02/2019 patient is alert and oriented 3 resting comfortably in bed. Patient does have large bruise to left upper extremity. Discussed anticoagulation with cardiology and oncology services. Cardiology to assess patient qualifies. Per oncology dr. bhatt patient's known multiple myeloma. Patient denies chest pain or shortness of breath. Patient denies nausea. Patient denies any urinary burning or frequency. On 07/03/2019 patient is alert and oriented 3 resting comfortably in bed. Cardiology had at length conversation with patient and family in regards to possibly starting anticoagulation for A. fib. At this time patient would like to take some time to think about it and talk it over with her nieces. Patient verbalized understanding of both risk and benefit of anticoagulation. At this time patient denies chest pain or shortness of breath. Patient denies nausea vomiting or diarrhea. Patient denies any urinary burning or frequency. Bruise to left arm is improving. Hemoglobin stable at 10.4 07/04/2019 patient is alert and oriented 3. Patient was started on eliquis for anticoagulation after discussion with cardiology and family. Hemoglobin 10.1. Left arm bruise appears to be healing. Patient denies any other signs of bleeding. Patient denies chest pain or shortness of breath. Patient denies nausea vomiting or diarrhea. Patient denies any urinary burning or frequency. Anticipate discharge to [facility] tomorrow. Objective - Vital Signs Vital signs: Vital Signs Temp 98.1 F 07/04/19 05:00 Pulse 67 07/04/19 09:33 Resp 16 07/04/19 05:00 BP 107/46 07/04/19 09:33 Pulse Ox 96 07/04/19 05:00 Intake & Output 07/03/19 07/04/19 07/04/19 18:59 06:59 18:59 Intake Total 240 Output Total 1 Balance 239 Intake: Oral 240 Output: Stool 1 Other: Voiding Method Toilet Toilet # Voids 3 2 - Exam In general patient is alert and oriented 3 in no apparent distress HEENT head normocephalic and atraumatic Neck is supple no JVD no goiter no lymphadenopathy Chest exam reveals a few scattered rhonchi no wheezing Cardiac exam reveals regular heart sounds no gallops no murmurs abdomen is soft nontender no organomegaly Extremity exam reveals mild edema no cyanosis or clubbing. Large bruise to left upper arm - Labs CBC & Chem 7: 07/04/19 06:51 07/04/19 06:51 Labs: Abnormal Lab Results - Last 24 Hours (Table) 07/04/19 07/04/19 Range/Units 06:51 06:51 RBC 3.12 L (3.80-5.40) m/uL Hgb 10.1 L (11.4-16.0) gm/dL Hct 29.8 L (34.0-46.0) % BUN 21 H (7-17) mg/dL Albumin 2.8 L (3.5-5.0) g/dL Microbiology - Last 24 Hours (Table) 07/02/19 10:00 Urine Culture - Final Urine,Voided Assessment and Plan Assessment: #1 atrial fibrillation with rapid ventricular response heart rate is improving with IV Cardizem drip. Cardizem drip DC'd. At length conversation held between cardiology with patient and family in regards to starting anticoagulation. At this time patient would like to take some time to think about options in regards to anticoagulation. Patient verbalizes understanding of risks and benefits of anticoagulation for atrial fibrillation #2 underlying history of hypertension #3 underlying history of hypothyroidism maintained on [place] Thyroid. TSH level 2.120 #4 underlying history of multiple myeloma. no contraindication for anticoagulation #5 previous history of colorectal cancer with resection #6 Left arm hematoma. hemoglobin 1.4 #7. Trace amount of leukocyte Estrace in urinary analysis. Patient is asymptomatic. Urine culture ordered DVT prophylaxis heparin. GI prophylaxis Pepcid 2-D echo completed showing an EF of 55-60% Repeat labs in a.m. orders will follow in a.m. PT, OT and elementary school social worker consulted Plan for discharge to rehab tomorrow I performed an examination of the patient and discussed their management with the Nurse Practitioner. I have reviewed the Nurse Practitioner's notes and agree with the documented findings and plan of care
[2019-07-05 07:54] LABS: Basophils % (A) 0 %; Eosinophils # (A) 0.1 k/uL (0-0.7); Eosinophils % (A) 2 %; HCT 30.2 % (34.0-46.0); HGB 10.5 gm/dL (11.4-16.0); Lymphocytes # (A) 1.5 k/uL (1.0-4.8); Lymphocytes % (A) 38 %; MCH 32.8 pg (25.0-35.0); MCHC 34.6 g/dL (31.0-37.0); MCV 94.9 fL (80.0-100.0); Mean Platelet Volume 6.9; Monocytes # (A) 0.3 k/uL (0-1.0); Monocytes % (A) 8 %; Neutrophils # (A) 1.9 k/uL (1.3-7.7); Neutrophils % (A) 49 %; Platelet Count 164 k/uL (150-450); RBC 3.19 m/uL (3.80-5.40); WBC 3.8 k/uL (3.8-10.6)
[2019-07-05] MEDS: THYROID, PORK 30 MG TAB PO SCH (08:04)
[2019-07-05 08:22] LABS: Albumin 2.9 g/dL (3.5-5.0); Calcium 9.2 mg/dL (8.4-10.2); Potassium 4.1 mmol/L (3.5-5.1); Total Bilirubin 0.7 mg/dL (0.2-1.3); Total Protein 6.5 g/dL (6.3-8.2)
[2019-07-05] MEDS: FAMOTIDINE 20 MG TAB PO SCH (08:38)
[2019-07-05] MEDS: APIXABAN 2.5 MG TABLET PO SCH (08:38)
[2019-07-05] MEDS: METOPROLOL TARTRATE 25 MG TAB PO SCH (08:38)
--- NOTE | 2019-07-05 11:23 | P.DS ---
Providers Date of admission: 07/02/19 10:40 Expected date of discharge: 07/05/19 Attending physician: Ana Maria Cristobal Consults: 06/30/19 14:08 Consult Physician Urgent Consulting Provider: Bryan Leo Consult Reason/Comments: afib Do you want consulting provider notified?: Yes 06/30/19 16:13 Consult Physician Routine Consulting Provider: Garth Jacome Consult Reason/Comments: multiple myeloma Do you want consulting provider notified?: Yes Primary care physician: Koki Faulkner Hospital Course: Discharge diagnosis #1 atrial fibrillation with rapid ventricular response heart rate is improving with IV Cardizem drip. Cardizem drip DC'd. At length conversation held between cardiology with patient and family in regards to starting anticoagulation. At this time patient would like to take some time to think about options in regards to anticoagulation. Patient verbalizes understanding of risks and benefits of anticoagulation for atrial fibrillation. She has been started on eliquis per cardiology services. Metroprolol added for rate control #2 underlying history of hypertension #3 underlying history of hypothyroidism maintained on [place] Thyroid. TSH level 2.120 #4 underlying history of multiple myeloma. no contraindication for anticoagulation #5 previous history of colorectal cancer with resection #6 Left arm hematoma. Improving #7. Trace amount of leukocyte Estrace in urinary analysis. Patient is asymptomatic. Urine culture showing no growth. Hospital Course Fabiola Perkins is an 88-year-old female patient of Dr. Soto who presented to [facility] emergency room due to episodes of chest pressure and nausea. Patient stated that she fell out of bed on Tuesday she was taken by her neighbors to [facility] emergency room she had migdalia applied to her scalp computed tomography scan of the brain did not reveal any intracranial bleeding. Patient was discharged home, patient was not feeling well and she decided to come to emergency room. She was evaluated in the ER and had evidence of atrial fibrillation with rapid ventricular response she was started on IV Cardizem and cardiology consultation was requested, she was admitted to telemetry floor. Patient has an extensive past medical history including history of multiple myeloma, history of colorectal cancer with resection, history of hypertension and history of hypothyroidism. She denies any previous history of cardiac disease or atrial fibrillation in the past. Patient has large hematoma on the left upper extremity since falling out of bed on Tuesday, cardiology recommended holding off anticoagulation at this time. On 07/01/2018 patient is alert and oriented 3. Patient is resting comfortably in chair. Patient's heart rate is now controlled. Oncology and cardiology services are following. Patient denies chest pain or shortness of breath. Patient denies nausea vomiting or diarrhea. Patient denies any urinary burning or frequency On 07/02/2019 patient is alert and oriented 3 resting comfortably in bed. Patient does have large bruise to left upper extremity. Discussed an ticoagulation with cardiology and oncology services. Cardiology to assess patient qualifies. Per oncology drSylvia indication patient's known multiple myeloma. Patient denies chest pain or shortness of breath. Patient denies nausea. Patient denies any urinary burning or frequency. On 07/03/2019 patient is alert and oriented 3 resting comfortably in bed. Cardiology had at length conversation with patient and family in regards to possibly starting anticoagulation for A. fib. At this time patient would like to take some time to think about it and talk it over with her nieces. Patient verbalized understanding of both risk and benefit of anticoagulation. At this time patient denies chest pain or shortness of breath. Patient denies nausea vomiting or diarrhea. Patient denies any urinary burning or frequency. Bruise to left arm is improving. Hemoglobin stable at 10.4 07/04/2019 patient is alert and oriented 3. Patient was started on eliquis for anticoagulation after discussion with cardiology and family. Hemoglobin 10.1. Left arm bruise appears to be healing. Patient denies any other signs of bleeding. Patient denies chest pain or shortness of breath. Patient denies na usea vomiting or diarrhea. Patient denies any urinary burning or frequency. Anticipate discharge to [facility] tomorrow. On 04/04/2019 patient is alert and oriented 3. Patient to be discharged to [facility] for physical therapy today. Patient is maintained on eliquis for anticoagulation per cardiology services. Hemoglobin 10.5. Bruising to left arm improving. Patient denies chest pain or shortness of breath. Patient denies nausea vomiting or diarrhea. Patient denies any urinary burning or frequency. I performed an examination of the patient and discussed their management with the Nurse Practitioner. I have reviewed the Nurse Practitioner's notes and agree with the documented findings and plan of care Patient Condition at Discharge: Stable Plan - Discharge Summary New Discharge Prescriptions: New Apixaban [Eliquis] 2.5 mg PO BID #180 tab Metoprolol Tartrate [Lopressor] 25 mg PO BID tab Continue Thyroid,Pork [[place] Thyroid] 60 mg PO MOTUWETHFRSA Cholecalciferol [Vitamin D3 (25 Mcg = 1000 Iu)] 1,000 unit PO W/SUPPER Furosemide [Lasix] 20 mg PO DAILY PRN PRN Reason: SWELLING Discharge Medication List Cholecalciferol [Vitamin D3 (25 Mcg = 1000 Iu)] 1,000 unit PO W/SUPPER 08/19/16 [History] Thyroid,Pork [[place] Thyroid] 60 mg PO MOTUWETHFRSA 08/19/16 [History] Furosemide [Lasix] 20 mg PO DAILY PRN 06/30/19 [History] Apixaban [Eliquis] 2.5 mg PO BID #180 tab 07/03/19 [Rx] Metoprolol Tartrate [Lopressor] 25 mg PO BID tab 07/05/19 [Rx] Follow up Appointment(s)/Referral(s): Bryan Leo MD [STAFF PHYSICIAN] - 07/11/19 10:30 am (With Huey GUTIERREZ) Jaron Pate [NON-STAFF] - As Needed Koki Faulkner MD [Primary Care Provider] - 1-2 days Patient Instructions/Handouts: A-fib (Atrial Fibrillation) (DC) Discharge Disposition: TRANSFER TO SNF/ECF
[2019-07-05 12:32] VITALS: BP 130/63; PULSE 69; TEMP 97.9
[2019-07-06] MEDS ORDERED: THYROID, PORK 30 MG TAB PO SCH (06:00)
== END 2019-07-05 14:45 | DRG 309 ==
LOC: EC 11:32 → 3SCARD 14:08 → OBSVTOIN 07-02 10:40 → 3NMEDONC 07-02 17:03
PROVIDERS: ADMIT Internal Medicine; ATTEND Internal Medicine
DX: I48.20 Chronic atrial fibrillation, unspecified (principal); C90.00 Multiple myeloma not having achieved remission; D64.9 Anemia, unspecified; D72.819 Decreased white blood cell count, unspecified; E03.9 Hypothyroidism, unspecified; S40.022A Contusion of left upper arm, initial encounter; Z82.49 Family history of ischemic heart disease and other diseases of the circulatory system; Z83.3 Family history of diabetes mellitus; Z85.048 Personal history of other malignant neoplasm of rectum, rectosigmoid junction, and anus; Z91.19 Patient's noncompliance with other medical treatment and regimen; Z88.1 Allergy status to other antibiotic agents; Z88.0 Allergy status to penicillin; Z88.2 Allergy status to sulfonamides; Z88.8 Allergy status to other drugs, medicaments and biological substances; Z79.890 Hormone replacement therapy; Z79.899 Other long term (current) drug therapy; W06.XXXA Fall from bed, initial encounter; Y92.003 Bedroom of unspecified non-institutional (private) residence as the place of occurrence of the external cause; S01.01XA Laceration without foreign body of scalp, initial encounter
CPT/HCPCS: 36415; 71045; 80053; 80061; 81001; 83735; 84443; 84484; 85025; 85610; 85730; 87086; 93005; 93306; 96360; 96361; 99285

== ENCOUNTER 2019-12-28 13:45 | Emergency (ER) | payer MEDICARE, BC ==
[2019-12-28 13:53] VITALS: RESP 16; TEMP 97.5
--- NOTE | 2019-12-28 14:14 | ED ---
General Adult HPI - General Chief complaint: Fall Stated complaint: fall/head injury Time Seen by Provider: 12/28/19 13:53 Source: patient, EMS, RN notes reviewed, old records reviewed Mode of arrival: EMS Limitations: no limitations - History of Present Illness Initial comments: 89-year-old female presenting status post fall with head injury. Patient states she had fallen yesterday in her basement. She did have head injury. She denies loss of consciousness. Denying any headache. Denies focal numbness or weakness. Fall had occurred approximately 24 hours ago. She was presenting to the emergency department at the request of her family to be evaluated for this fall with head trauma. Patient herself has no complaints. No neck pain. No chest pain. No abdominal pain. No vomiting or diarrhea. No fever. - Related Data Home Medications Medication Instructions Recorded Confirmed Cholecalciferol [Vitamin D3 (25 1,000 unit PO W/SUPPER 08/19/16 06/30/19 Mcg = 1000 Iu)] Thyroid,Pork [[place] Thyroid] 60 mg PO MOTUWETHFRSA 08/19/16 06/30/19 Furosemide [Lasix] 20 mg PO DAILY PRN 06/30/19 06/30/19 Previous Rx's Medication Instructions Recorded Apixaban [Eliquis] 2.5 mg PO BID #180 tab 07/03/19 Metoprolol Tartrate [Lopressor] 25 mg PO BID tab 07/05/19 Allergies Allergy/AdvReac Type Severity Reaction Status Date / Time cetirizine [From Zyrtec] Allergy Rash/Hives Verified 06/30/19 13:07 erythromycin base Allergy Rash/Hives Verified 06/30/19 13:07 Penicillins Allergy Swelling Verified 06/30/19 13:07 Sulfa (Sulfonamide Allergy Rash/Hives Verified 06/30/19 13:07 Antibiotics) Review of Systems ROS Statement: Those systems with pertinent positive or pertinent negative responses have been documented in the HPI. ROS Other: All systems not noted in ROS Statement are negative. Past Medical History Past Medical History: Cancer, Hypertension, Osteoarthritis (OA), Thyroid Disorder Additional Past Medical History / Comment(s): Lichen Sclerosus et Atrophicus, multiple myoloma History of Any Multi-Drug Resistant Organisms: None Reported Past Surgical History: Appendectomy Additional Past Surgical History / Comment(s): colon resection, breast biopsy, cataract implants bilat. arteryitis left rastafari with Bx, Past Anesthesia/Blood Transfusion Reactions: No Reported Reaction Past Psychological History: No Psychological Hx Reported Smoking Status: Never smoker Past Alcohol Use History: None Reported Past Drug Use History: None Reported - Past Family History Father Family Medical History: Coronary Artery Disease (CAD) Mother Family Medical History: Coronary Artery Disease (CAD), Diabetes Mellitus Brother(s) Family Medical History: Cancer, Liver Disease Additional Family Medical History / Comment(s): Another brother-CAD/Pacer-AICD. Another brother-CVA/CAD. Another brother multiple myoloma/CAD. Another brother CA-esophagus. Another brother CA prostate Sister(s) Family Medical History: CVA/TIA, Dementia General Exam Limitations: no limitations General appearance: alert, in no apparent distress Head exam: Present: atraumatic, normocephalic Eye exam: Present: normal appearance, PERRL ENT exam: Present: normal exam Neck exam: Present: normal inspection. Absent: tenderness, meningismus, full ROM Respiratory exam: Present: normal lung sounds bilaterally. Absent: respiratory distress, wheezes Cardiovascular Exam: Present: regular rate, normal rhythm GI/Abdominal exam: Present: soft. Absent: distended, tenderness, guarding, rebound Extremities exam: Present: normal inspection, normal capillary refill. Absent: pedal edema, calf tenderness Neurological exam: Present: alert, oriented X3. Absent: motor sensory deficit Psychiatric exam: Present: normal affect, normal mood Skin exam: Present: warm, dry, intact. Absent: cyanosis, diaphoretic Course Vital Signs 12/28/19 13:47 Temperature 97.5 F L Pulse Rate 77 Respiratory 16 Rate Blood Pressure 161/70 O2 Sat by Pulse 100 Oximetry Medical Decision Making - Medical Decision Making 89-year-old female with fall yesterday. Did discuss case with the patient's sister, right. She states that she is supposed use a walker but does not routinely use this at home and she has had multiple falls. Patient denying any complaints the time my evaluation. She has no external signs of trauma. She is not on any blood thinners. She has history of multiple myeloma, thyroid disease previous colon cancer. She has history of A. fib but is not on any anticoagulation secondary to multiple falls. Head CT is performed which has artifact in the frontal lobes secondary to being artifact in patient positioning. There is no large hematoma, no midline shift. The exam is limited secondary to artifact I did discuss case with the radiologist and there is no secondary signs of intracranial hemorrhage or mass effect. CT of the cervical spine is negative for fracture subluxation, severe kyphosis and degenerative changes. Patient can be discharged home at this time. We will be given return parameters. Her family is able to pick her up in the emergency department. Disposition Clinical Impression: Fall, Closed head injury Disposition: HOME SELF-CARE Condition: Fair Instructions (If sedation given, give patient instructions): Fall Prevention for Older Adults (ED), Concussion (ED), Head Injury (ED) Is patient prescribed a controlled substance at d/c from ED?: No Referrals: Koki Faulkner MD [Primary Care Provider] - 1-2 days Time of Disposition: 15:08
--- NOTE | 2019-12-28 14:44 | CT ---
EXAMINATION TYPE: CT brain [place] wo con DATE OF EXAM: 12/28/2019 COMPARISON: 07/09/2017 HISTORY: Fall CT DLP: 1596.3 mGycm, Automated exposure control for dose reduction was used. CONTRAST: Patient injected with 0 mL of Isovue 300. CT of the brain is performed utilizing 3 mm thick sections through the posterior fossa and 3 mm thick sections through the remaining calvarium. There is limitation of the study due to beam hardening ar tifact. This causes limitation for more subtle findings. Study is performed within 24 hours of arrival to the hospital. No abnormal hyperdensity is present to suggest an acute intracranial hemorrhage. No mass lesion is evident. No acute infarcts are evident. Ventricles and sulci are appropriate for the patient age. Paranasal sinuses and mastoid air cells within the [id number] are clear. IMPRESSIONS: 1. Exam limited due to beam hardening artifact due to positioning. Frontal regions are especially marti ited. 2. An acute intracranial process not identified. CT cervical spine. COMPARISON: None CT of the cervical spine is performed in the axial plane at 2 mm thick sections. Reconstructed image s in the coronal, and sagittal plane are reviewed on the computer. No acute fractures are evident. There is a kyphosis through the cervical spine There is narrowing of disc height greatest at C5-6. Vertebral body heights are preserved. No spinal canal stenosis is evident. No significant neural foraminal stenosis is evident. IMPRESSIONS: 1. There is a kyphosis within the cervical spine. This is contributing to limitation on evaluation. 2. No acute displaced fracture
[2019-12-28 15:32] VITALS: BP 152/72; PULSE 72
== END 2019-12-28 15:31 | disposition home or self-care (01) ==
LOC: EC 13:45
DX: S09.90XA Unspecified injury of head, initial encounter (principal); R93.0 Abnormal findings on diagnostic imaging of skull and head, not elsewhere classified; I48.91 Unspecified atrial fibrillation; E07.9 Disorder of thyroid, unspecified; I10 Essential (primary) hypertension; Z79.890 Hormone replacement therapy; Z79.899 Other long term (current) drug therapy; Z88.1 Allergy status to other antibiotic agents; Z88.0 Allergy status to penicillin; Z88.2 Allergy status to sulfonamides; Z88.8 Allergy status to other drugs, medicaments and biological substances; Z85.038 Personal history of other malignant neoplasm of large intestine; Z85.79 Personal history of other malignant neoplasms of lymphoid, hematopoietic and related tissues; Z90.49 Acquired absence of other specified parts of digestive tract; W19.XXXA Unspecified fall, initial encounter; Y92.008 Other place in unspecified non-institutional (private) residence as the place of occurrence of the external cause
CPT/HCPCS: 70450; 72125; 99284

== ENCOUNTER 2021-02-19 11:37 | Emergency (ER) | payer MEDICARE, BC ==
[2021-02-19 11:45] VITALS: TEMP 97.7
[2021-02-19 12:02] VITALS: RESP 18
--- NOTE | 2021-02-19 12:17 | ED ---
Dizziness HPI - General Chief Complaint: Dizziness Stated Complaint: Dizziness Time Seen by Provider: 02/19/21 11:54 Source: patient Mode of arrival: ambulatory Limitations: no limitations - History of Present Illness Initial Comments: 89-year-old female presents to emergency room with a chief complaint of lightheadedness. States she experienced this last night and early this morning but does not feel it at the moment. States that earlier this week she was at her primary care who advised her to continue taking her diuretics because she began to develop bilateral lower extremity edema. Patient reports she does not feel dizzy but feels lightheaded, particularly when getting up from her bed. She denies visual changes, headaches, one-sided weakness or paresthesias. He has any chest pain shortness of breath. - Related Data Home Medications Medication Instructions Recorded Confirmed Cholecalciferol [Vitamin D3 (25 1,000 unit PO W/SUPPER 08/19/16 06/30/19 Mcg = 1000 Iu)] Thyroid,Pork [[place] Thyroid] 60 mg PO MOTUWETHFRSA 08/19/16 06/30/19 Furosemide [Lasix] 20 mg PO DAILY PRN 06/30/19 06/30/19 Previous Rx's Medication Instructions Recorded Apixaban [Eliquis] 2.5 mg PO BID #180 tab 07/03/19 Metoprolol Tartrate [Lopressor] 25 mg PO BID tab 07/05/19 Allergies Allergy/AdvReac Type Severity Reaction Status Date / Time cetirizine [From Zyrtec] Allergy Rash/Hives Verified 02/19/21 11:45 erythromycin base Allergy Rash/Hives Verified 02/19/21 11:45 Penicillins Allergy Swelling Verified 02/19/21 11:45 Sulfa (Sulfonamide Allergy Rash/Hives Verified 02/19/21 11:45 Antibiotics) Review of Systems ROS Statement: Those systems with pertinent positive or pertinent negative responses have been documented in the HPI. ROS Other: All systems not noted in ROS Statement are negative. Past Medical History Past Medical History: Cancer, Hypertension, Osteoarthritis (OA), Thyroid Disorder Additional Past Medical History / Comment(s): Lichen Sclerosus et Atrophicus, multiple myoloma History of Any Multi-Drug Resistant Organisms: None Reported Past Surgical History: Appendectomy Additional Past Surgical History / Comment(s): colon resection, breast biopsy, cataract implants bilat. arteryitis left catholic with Bx, Past Anesthesia/Blood Transfusion Reactions: No Reported Reaction Past Psychological History: No Psychological Hx Reported Smoking Status: Never smoker Past Alcohol Use History: None Reported Past Drug Use History: None Reported - Past Family History Father Family Medical History: Coronary Artery Disease (CAD) Mother Family Medical History: Coronary Artery Disease (CAD), Diabetes Mellitus Brother(s) Family Medical History: Cancer, Liver Disease Additional Family Medical History / Comment(s): Another brother-CAD/Pacer-AICD. Another brother-CVA/CAD. Another brother multiple myoloma/CAD. Another brother CA-esophagus. Another brother CA prostate Sister(s) Family Medical History: CVA/TIA, Dementia General Exam - General Exam Comments Initial Comments: 89-year-old female presents to emergency Department with a chief complaint of lightheadedness. Limitations: no limitations General appearance: alert, in no apparent distress Head exam: Present: atraumatic, normocephalic, normal inspection Eye exam: Present: normal appearance, PERRL, EOMI Pupils: Present: normal accommodation ENT exam: Present: normal exam, normal oropharynx, mucous membranes moist, TM's normal bilaterally, normal external ear exam Neck exam: Present: normal inspection, full ROM. Absent: tenderness Respiratory exam: Present: normal lung sounds bilaterally. Absent: respiratory distress, wheezes, rales, rhonchi, stridor, chest wall tenderness, accessory muscle use Cardiovascular Exam: Present: regular rate, normal rhythm, normal heart sounds. Absent: systolic murmur GI/Abdominal exam: Present: soft. Absent: distended, tenderness, guarding, rebound Extremities exam: Present: normal inspection, full ROM, normal capillary refill. Absent: tenderness, pedal edema, joint swelling Back exam: Present: normal inspection, full ROM. Absent: tenderness, CVA tenderness (R), CVA tenderness (L) Neurological exam: Present: alert, oriented X3, CN II-XII intact, normal gait Psychiatric exam: Present: normal affect, normal mood Skin exam: Present: warm, dry, intact, normal color Course Vital Signs 02/19/21 02/19/21 02/19/21 11:43 12:01 13:47 Temperature 97.7 F Pulse Rate 74 73 71 Respiratory 20 18 18 Rate Blood Pressure 166/75 159/84 O2 Sat by Pulse 99 99 99 Oximetry 02/19/21 02/19/21 14:54 15:16 Temperature 97.7 F Pulse Rate 71 72 Respiratory 18 18 Rate Blood Pressure 156/77 140/69 O2 Sat by Pulse 99 99 Oximetry Medical Decision Making - Medical Decision Making 89-year-old female presents to emergency room with a chief complaint of lightheadedness. Physical examination reveals +1 pitting edema bilaterally. No unilateral leg swelling or calf tenderness. No focal neural deficits. CBC reveals mild anemia of 10.1, however this appears to be her baseline. CMP reveals mild elevation of BUN at 21. UA is unremarkable. CT of the brain is also unremarkable. I suspect her symptoms are secondary to being started on the diuretic which potentially could be causing hypertensive episodes whenever she is getting up from her bed. She was advised to follow with the primary care physician. Return parameters were thoroughly discussed the patient was standing and agreeable. Case discussed with Dr. Gray. - Lab Data Result diagrams: 02/19/21 12:26 02/19/21 12:26 Lab Results 02/19/21 02/19/21 02/19/21 Range/Units 12:26 12:26 12:26 WBC 4.1 (3.8-10.6) k/uL RBC 3.22 L (3.80-5.40) m/uL Hgb 10.7 L (11.4-16.0) gm/dL Hct 30.3 L (34.0-46.0) % MCV 94.0 (80.0-100.0) fL MCH 33.3 (25.0-35.0) pg MCHC 35.4 (31.0-37.0) g/dL RDW 12.8 (11.5-15.5) % Plt Count 147 L (150-450) k/uL MPV 7.7 Neutrophils % 60 % Lymphocytes % 27 % Monocytes % 10 % Eosinophils % 1 % Basophils % 0 % Neutrophils # 2.5 (1.3-7.7) k/uL Lymphocytes # 1.1 (1.0-4.8) k/uL Monocytes # 0.4 (0-1.0) k/uL Eosinophils # 0.0 (0-0.7) k/uL Basophils # 0.0 (0-0.2) k/uL PT (9.0-12.0) sec INR (<1.2) APTT (22.0-30.0) sec Sodium 137 (137-145) mmol/L Potassium 4.2 (3.5-5.1) mmol/L Chloride 104 (98-107) mmol/L Carbon Dioxide 28 (22-30) mmol/L Anion Gap 5 mmol/L BUN 21 H (7-17) mg/dL Creatinine 0.81 (0.52-1.04) mg/dL Est GFR (CKD-EPI)AfAm 75 (>60 ml/min/1.73 sqM) Est GFR (CKD-EPI)NonAf 65 (>60 ml/min/1.73 sqM) Glucose 99 (74-99) mg/dL Calcium 9.4 (8.4-10.2) mg/dL Total Bilirubin 1.0 (0.2-1.3) mg/dL AST 31 (14-36) U/L ALT 12 (4-34) U/L Alkaline Phosphatase 46 (38-126) U/L Troponin I (0.000-0.034) ng/mL NT-Pro-B Natriuret Pep pg/mL Total Protein 7.8 (6.3-8.2) g/dL Albumin 3.8 (3.5-5.0) g/dL Urine Color Light Yellow Urine Appearance Clear (Clear) Urine pH 7.5 (5.0-8.0) Ur Specific [place] 1.009 (1.001-1.035) Urine Protein Negative (Negative) Urine Glucose (UA) Negative (Negative) Urine Ketones Negative (Negative) Urine Blood Trace H (Negative) Urine Nitrite Negative (Negative) Urine Bilirubin Negative (Negative) Urine Urobilinogen <2.0 (<2.0) mg/dL Ur Leukocyte Esterase Trace H (Negative) Urine RBC 1 (0-5) /hpf Urine WBC 4 (0-5) /hpf 02/19/21 02/19/21 02/19/21 Range/Units 12:26 12:26 12:26 WBC (3.8-10.6) k/uL RBC (3.80-5.40) m/uL Hgb (11.4-16.0) gm/dL Hct (34.0-46.0) % MCV (80.0-100.0) fL MCH (25.0-35.0) pg MCHC (31.0-37.0) g/dL RDW (11.5-15.5) % Plt Count (150-450) k/uL MPV Neutrophils % % Lymphocytes % % Monocytes % % Eosinophils % % Basophils % % Neutrophils # (1.3-7.7) k/uL Lymphocytes # (1.0-4.8) k/uL Monocytes # (0-1.0) k/uL Eosinophils # (0-0.7) k/uL Basophils # (0-0.2) k/uL PT 10.3 (9.0-12.0) sec INR 1.0 (<1.2) APTT 22.1 (22.0-30.0) sec Sodium (137-145) mmol/L Potassium (3.5-5.1) mmol/L Chloride (98-107) mmol/L Carbon Dioxide (22-30) mmol/L Anion Gap mmol/L BUN (7-17) mg/dL Creatinine (0.52-1.04) mg/dL Est GFR (CKD-EPI)AfAm (>60 ml/min/1.73 sqM) Est GFR (CKD-EPI)NonAf (>60 ml/min/1.73 sqM) Glucose (74-99) mg/dL Calcium (8.4-10.2) mg/dL Total Bilirubin (0.2-1.3) mg/dL AST (14-36) U/L ALT (4-34) U/L Alkaline Phosphatase (38-126) U/L Troponin I <0.012 (0.000-0.034) ng/mL NT-Pro-B Natriuret Pep 864 pg/mL Total Protein (6.3-8.2) g/dL Albumin (3.5-5.0) g/dL Urine Color Urine Appearance (Clear) Urine pH (5.0-8.0) Ur Specific [place] (1.001-1.035) Urine Protein (Negative) Urine Glucose (UA) (Negative) Urine Ketones (Negative) Urine Blood (Negative) Urine Nitrite (Negative) Urine Bilirubin (Negative) Urine Urobilinogen (<2.0) mg/dL Ur Leukocyte Esterase (Negative) Urine RBC (0-5) /hpf Urine WBC (0-5) /hpf Disposition Clinical Impression: Lightheadedness Disposition: HOME SELF-CARE Condition: Stable Instructions (If sedation given, give patient instructions): Lightheadedness (ED) Additional Instructions: Please return to the Emergency Department if symptoms worsen or any other concerns. Is patient prescribed a controlled substance at d/c from ED?: No Referrals: Koki Faulkner MD [Primary Care Provider] - 1-2 days Time of Disposition: 14:59
[2021-02-19 12:39] LABS: Basophils % (A) 0 %; Eosinophils % (A) 1 %; HCT 30.3 % (34.0-46.0); HGB 10.7 gm/dL (11.4-16.0); Lymphocytes # (A) 1.1 k/uL (1.0-4.8); Lymphocytes % (A) 27 %; MCH 33.3 pg (25.0-35.0); MCHC 35.4 g/dL (31.0-37.0); Mean Platelet Volume 7.7; Monocytes # (A) 0.4 k/uL (0-1.0); Monocytes % (A) 10 %; Neutrophils # (A) 2.5 k/uL (1.3-7.7); Neutrophils % (A) 60 %; Platelet Count 147 k/uL (150-450); RBC 3.22 m/uL (3.80-5.40); RDW 12.8 % (11.5-15.5); WBC 4.1 k/uL (3.8-10.6)
[2021-02-19 12:53] LABS: Albumin 3.8 g/dL (3.5-5.0); Calcium 9.4 mg/dL (8.4-10.2); Total Protein 7.8 g/dL (6.3-8.2)
[2021-02-19 12:57] LABS: Potassium 4.2 mmol/L (3.5-5.1)
[2021-02-19 13:09] LABS: Partial Thromboplastin Time 22.1 sec (22.0-30.0); Prothrombin Time 10.3 sec (9.0-12.0)
--- NOTE | 2021-02-19 13:10 | CT ---
EXAMINATION TYPE: CT brain wo con DATE OF EXAM: 02/19/2021 COMPARISON: 12/28/2019 HISTORY: H/O AMS, H/A and fatigue CT DLP: 1771.4 mGycm Automated exposure control for dose reduction was used. FINDINGS: Exam limited by artifact. There is moderate generalized degenerative change. Faint low-attenuation wh ite matter which is submitted. Intracranial atherosclerotic changes are noted. Hypertrophic and degen erative changes spine. Grade 1 anterolisthesis C3 on C4 multilevel facet arthropathy. Changes of mild chronic sinusitis. Orbits symmetric. IMPRESSION: DEGENERATIVE AND NONSPECIFIC WHITE MATTER CHANGES MOST TYPICAL REMOTE WHITE MATTER ISCHEMIA. NO ACUTE HEMORRHAGE OR MASS EFFECT.
[2021-02-19 14:30] LABS: Appearance,Urine Clear (Clear); Bilirubin,Urine Negative (Negative); Blood,Urine Trace (Negative); Color,Urine Light Yellow; Glucose,Urine (UA) Negative (Negative); Ketones,Urine Negative (Negative); Leukocyte Esterase,Urine Trace (Negative); Nitrite,Urine Negative (Negative); PH, Urine 7.5 (5.0-8.0); Protein,Urine Negative (Negative); RBC,Urine 1 /hpf (0-5); Specific Gravity,Urine 1.009 (1.001-1.035); Urobilinogen,Urine <2.0 mg/dL (<2.0); WBC,Urine 4 /hpf (0-5)
[2021-02-19 15:18] VITALS: BP 140/69; PULSE 72
== END 2021-02-19 15:18 | disposition home or self-care (01) ==
LOC: EC 11:37
DX: R42 Dizziness and giddiness (principal); R07.9 Chest pain, unspecified; R60.0 Localized edema; R06.02 Shortness of breath; Z88.0 Allergy status to penicillin; Z88.2 Allergy status to sulfonamides; Z88.8 Allergy status to other drugs, medicaments and biological substances; I10 Essential (primary) hypertension
CPT/HCPCS: 36415; 70450; 80053; 81001; 83880; 84484; 85025; 85610; 85730; 93005; 99285